=== PATIENT | male | born 1960 | race Caucasian/White ===

== ENCOUNTER 2017-07-01 17:25 | Observation (INO) ==
[2017-07-01] MEDS ORDERED: MORPHINE 2 MG/1 ML SYRINGE IV PRN ×2 (17:35→20:40)
[2017-07-01] MEDS ORDERED: ONDANSETRON 4 MG/2 ML VIAL IV PRN (17:35)
[2017-07-01] MEDS ORDERED: ENOXAPARIN 100 MG/ML SYRINGE SUBCUT STA (17:35)
[2017-07-01] MEDS ORDERED: ASPIRIN 325 MG TABLET PO STA (17:35)
[2017-07-01] MEDS ORDERED: NITROGLYCERIN 2% OINT 1 INCH/GM PACK TOP STA (17:35)
[2017-07-01] MEDS ORDERED: SODIUM CHLORIDE 0.9% 500 ML IV STA (17:39)
[2017-07-01] MEDS ORDERED: NITROGLYCERIN 2% OINT 1 INCH/GM PACK TOP ONE (17:41)
[2017-07-01] MEDS ORDERED: ASPIRIN 325 MG TABLET ONE (17:41)
[2017-07-01] MEDS ORDERED: ENOXAPARIN 80 MG/0.8 ML SYRINGE SUBCUT ONE (17:41)
--- NOTE | 2017-07-01 17:45 | Emergency Department Note ---
Jose Saini Manpreet, am scribing for, and in the presence of, Dajuan Meadows MD 17: 37. Dori Saini James D, MD, personally performed the services described in this documentation, ascribed by Lang Garcia in my presence, and it is both accurate and complete 740 . Arrival - Arrival ED Nursing Triage Note: pt was working and thought he went into svt Mode of Arrival: Ambulatory Limitations: No Limitations Source: Patient - History of Present Illness Onset (ago): hour(s) (at 1430) Consistency: constant Severity: moderate <Dajuan Meadows - Last Filed: 07/01/17 18:30> <Chico Moncada - Last Filed: 07/01/17 18:46> - Arrival Chief Complaint: Arrhythmia/Palpitations Time Seen by Provider: 07/01/17 17:28 - History of Present Illness HPI Narrative: Pt is a 56 y/o male who presents to the ED with CC of CP and heart beating fast earlier today at 1430. Pt describes the CP as non-radiating and as chest "tightness." Pt was cutting grass and this pain began. Pt c/o being SOB, nausea , and turning pale. Pt denies any V/D, fever, or chills. Pt is a current smoker and smokes 2 packs a day. Pt also c/o leg cramping when walking. No other pains/ complaints reported to the ED. (Lang Garcia) Pt is a 56 y/o male who presents to the ED with CC of CP and heart beating fast earlier today at 1430. Pt describes the CP as non-radiating and as chest "tightness." Pt was cutting grass and this pain began. Pt c/o being SOB, nausea , and turning pale. Patient states that this episode lasted about 45 minutes. confirms that he turned pale. She states that she was concerned that the patient was having a hypoglycemic episode therefore she fed him a candy bar and a coke and this did not help. Pt denies any V/D, fever, or chills. Pt is a current smoker and smokes 2 packs a day. Pt also c/o right leg cramping when walking. No other pains/complaints reported to the ED. (Dori,Dajuan D) Allergies/Adverse Reactions: Allergies Allergy/AdvReac Type Severity Reaction Status Date / Time No Known Allergies Allergy Unverified 07/01/17 17:29 Review of System - Review of System 12 point system: reviewed and no additional remarkable complaints except as stated - Review of System Constitutional: Absent: chills, diaphoresis, fever Respiratory: Present: respiratory distress. Absent: cough, wheezing Cardiovascular: Present: chest pain, palpitations Gastrointestinal: Present: nausea. Absent: abdominal pain, vomiting, diarrhea Genitourinary male: Absent: dysuria Musculoskeletal: Absent: arm pain, back pain, leg pain, neck pain Neurological: Absent: headache, weakness, numbness, paresthesias <Dajuan Meadows - Last Filed: 07/01/17 18:30> Medical,Surgical,& Family Hx - Social History Smoking Status: Smoker, status unknown Frequency of Alcohol Use: None Type of Drug Use: None <Dajuan Meadows - Last Filed: 07/01/17 18:30> Exam <Dajuan Meadows - Last Filed: 07/01/17 18:30> <Chico Moncada - Last Filed: 07/01/17 18:46> Vital Signs: Vital Signs Temperature 97.2 F L 07/01/17 17:26 Pulse Rate 111 H 07/01/17 17:26 Respiratory Rate 18 07/01/17 17:33 Blood Pressure 149/109 07/01/17 17:26 O2 Sat by Pulse Oximetry 97 07/01/17 17:26 GENERAL: This is a well-nourished well-developed white male in no apparent distress. VITAL SIGNS: Reviewed HEENT: Head is atraumatic and normocephalic. Pupils are equal round react to light. Extraocular movements are intact. Oropharynx is benign with moist mucous membranes. NECK: Neck is soft and supple without tenderness. There are no masses. There is no lymphadenopathy. LUNGS: Lungs are clear to auscultation. Chest rises symmetrically. There is no chest wall tenderness. CV: Heart is rapid rate regular rhythm without murmurs rubs or gallops. Pulses are not palpable at dorsalis pedis or posterior tibial. Patient does have 2+ bilateral femoral pulses. ABDOMEN: Abdomen is soft, nontender to palpation. There are no abdominal abnormal masses palpated. There is no organomegaly. Bowel sounds are present and active. SKIN: Skin is warm and dry. No rash. EXTREMITIES: Patient has full range of motion without tenderness. There is no pedal edema. NEUROLOGIC: Awake alert and oriented 4. Cranial nerves II through XII are grossly intact. Motor is 5 over 5 in all extremities bilaterally. (Dajuan Meadows) Course - Consultations Time: 18:10 <Dajuan Meadows - Last Filed: 07/01/17 18:30> <Chico Moncada - Last Filed: 07/01/17 18:46> - Consultations Consultation #1: Discussed with Dr. Flores. Patient will be admitted to his service. Initial orders written for him. He will assume patient's care upon arrival to the wright. (Dajuan Meadows) Results - Labs CBC & BMP: 07/01/17 17:36 07/01/17 17:36 Lab Results: I have reviewed the patients labs - EKG EKG results: interpreted by ERMD - Diagnostic Findings Procedure: Chest x-ray: image reviewed by me (No infiltrate, no pleural effusion , no pneumothorax.) <Dajuan Meadows - Last Filed: 07/01/17 18:30> - Labs CBC & BMP: 07/01/17 17:36 07/01/17 17:36 Lab Results: I have reviewed the patients labs <Chico Mnocada - Last Filed: 07/01/17 18:46> - Labs Labs: Laboratory Tests 07/01/17 17:36 INR 1.0 Laboratory Tests 07/01/17 17:36 Troponin I 0.446 H (Dajuan Meadows) - Impressions EKG: Sinus tachycardia with a rate of 102, nonspecific ST-T wave changes, left axis deviation. (Dajuan Meadows) Disposition Case discussed with: patient, patient's family Time of Disposition: 17:42 <Dajuan Meadows - Last Filed: 07/01/17 18:30> <Chico Moncada - Last Filed: 07/01/17 18:46> Clinical Impression: Chest pain, Claudication of right lower extremity, Nicotine addiction, Elevated troponin Disposition: Still a Patient Condition: Guarded
[2017-07-01 17:47] LABS: Basophils # 0.1 10*3/uL (0.0-0.2); Basophils % 0.4 % (0.0-0.8); Eosinophils # 0.1 10*3/uL (0.0-0.87); Eosinophils % 0.7 % (0.00-10.9); Hemoglobin 16.3 GM/DL (14.0-18.0); Immature Granulocytes % 0.4 %; Immature Granulocytes Absolute 0.05 #; Lymphocytes # 3.1 10*3/uL (1.4-4.0); Lymphocytes % 25.9 % (21.2-54.2); Mean Corpuscular HGB Conc 34.7 GM/DL (32-36); Mean Corpuscular Hemoglobin 34 PG (27-34); Mean Corpuscular Volume 98.9 FL (87-102); Mean Platelet Volume 9.8 FL (9.6-12.0); Monocytes # 1.1 10*3/uL (0.11-0.8); Monocytes % 9.5 % (1.7-12.7); Neutrophils # 7.5 10*3/uL (1.4-7.4); Neutrophils % 63.1 % (38.7-73.9); Platelet Count 182 T/CUMM (130-400); Red Blood Count 4.75 MC/CUMM (3.8-5.5); Red Cell Distribution Width 12.2 % (9.3-17.3); White Blood Count 11.8 T/CUMM (4-12)
[2017-07-01 17:53] LABS: Apearance,Urine CLEAR (Clear); Bilirubin,Urine Negative (Negative); Blood, Urine Negative (Negative); Glucose,Urine (UA) Negative (Negative); Ketones,Urine Negative (Negative); Nitrite,Urine Negative (Negative); Protein,Urine Negative; Urine Color Colorless (Yellow); Urine Urobilinogen < 2.0 EU/DL (0.2-1.0)
[2017-07-01 17:57] LABS: PT Patient Result 10.4 SECS; Partial Thromboplastin Time 28.4 SECS (0-40)
[2017-07-01 18:15] LABS: Alanine Aminotransferase 21 U/L (16-61); Albumin 3.8 G/DL (3.4-5.0); Alkaline Phosphatase 102 U/L (45-117); Aspartate Amino Transferase 20 U/L (0-37); Bilirubin,Total < 0.39 MG/DL (0.2-1.0); Blood Urea Nitrogen 7 MG/DL (7-18); Calcium 9.8 MG/DL (8.5-10.1); Glucose 72 MG/DL (74-106); Osmolality,Calculated 271.7 MOS/KG (273-304); Potassium 3.9 MMOL/L (3.5-5.1); Sodium 138 MMOL/L (136-145); Total Protein 7.6 G/DL (6.4-8.3)
--- NOTE | 2017-07-01 18:16 | XRay Report ---
History: Chest pain Date: 07/01/2017 Study: Chest x-ray AP portable Comparison exam: No previous currently available The cardiomediastinal silhouette and pulmonary vasculature are unremarkable. The lungs and pleural spaces are clear. There is mild thoracic spondylosis. Impression: No acute cardiopulmonary process PROCEDURE INTERPRETED AT [facility] DEPARTMENT OF RADIOLOGY Final Report Signed by: Dr. Jena Mcdaniel
[2017-07-01] MEDS ORDERED: MORPHINE 2 MG/1 ML SYRINGE IV STA (19:10)
[2017-07-01] MEDS ORDERED: ONDANSETRON 4 MG/2 ML VIAL IV STA ×2 (19:10)
[2017-07-01] MEDS ORDERED: ONDANSETRON 4 MG/2 ML VIAL ONE (19:12)
[2017-07-01] MEDS ORDERED: MORPHINE 2 MG/1 ML SYRINGE ONE (19:12)
--- NOTE | 2017-07-01 19:23 | EKG Report ---
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
[2017-07-01] MEDS ORDERED: MAGNESIUM SULF RIDER 4 GM in PREMIX 1 EACH IV PRN (20:40)
[2017-07-01] MEDS ORDERED: ZALEPLON 5 MG CAPSULE PO PRN (20:40)
[2017-07-01] MEDS ORDERED: MAGNESIUM SULF RIDER 2 GM in PREMIX 1 EACH IV PRN (20:40)
--- NOTE | 2017-07-01 21:23 | EKG Report ---
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
[2017-07-01] MEDS: SODIUM CHLORIDE 0.9% 1,000 ML IV SCH (21:38)
--- NOTE | 2017-07-01 23:47 | EKG Report ---
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
[2017-07-02 01:20] LABS: Risk Ratio 2.98; VLDL CHOLESTEROL 27.8 MG/DL
[2017-07-02] MEDS: SODIUM CHLORIDE 0.9% 1,000 ML IV SCH ×3 (05:41→21:03)
[2017-07-02] MEDS: ONDANSETRON 4 MG/2 ML VIAL IV PRN ×2 (05:59→10:06)
--- NOTE | 2017-07-02 08:32 | Cardiology History & Physical ---
Assessment and Plan - Time spent with patient Time spent with patient: Greater than 30 minutes (due to assessment, plan, and documentation) Time spent discussing smoking cessation with patient: 3 to 10 minutes (1) Chest pain Status: Acute Assessment and plan: See plan of care listed below. Current Visit: Yes (2) Elevated troponin Status: Acute Assessment and plan: See plan of care listed below. Current Visit: Yes (3) History of mild nonobstructive CAD Status: Chronic Assessment and plan: See plan of care listed below. Current Visit: Yes (4) Claudication of right lower extremity Status: Acute Assessment and plan: See plan of care listed below. Current Visit: Yes (5) Nicotine addiction Status: Chronic Assessment and plan: See plan of care listed below. Current Visit: Yes Qualifiers: Nicotine product type: cigarettes (6) History of PSVT (paroxysmal supraventricular tachycardia) Status: Chronic Assessment and plan: See plan of care listed below. Current Visit: No (7) NSVT (nonsustained ventricular tachycardia) Status: Acute Assessment and plan: See plan of care listed below. 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 Tai Mr. Flynn is a 56 year old male with a prior history of SVT and mild nonobstructive CAD per cath in July 2006. He also has a history of prior ETOH abuse and is currently a 2PPD smoker. He also has a reported history of sepsis and ITP. He denies a history of hypertension, diabetes, dyslipidemia, cancer, stroke, or NE. He has a surgical history significant for a fractured C4- C6 requiring surgical intervention x2. Per records from [place], he had an episode of SVT at [facility] in 2005 which converted with one dose of Adenosine and he was subsequently transferred to [facility] for further evaluation where he underwent LHC with Dr. Collier. He had issues with ETOH withdrawal but he eventually also underwent EGD with Dr. Soares which revealed mild esophagitis in the middle-lower esophagus and moderately severe gastritus on the antrum and greater curvature of the stomach. Mr. Flynn presents to the hospital with complaints of chest tightness and heart racing. He reports he was outside cutting grass and weedeating all day yesterday and yesterday afternoon, his chest became tight and he noticed his heart racing. His reports he appeared pale and diaphoretic and she thought he had become hypoglycemic. She gave him a soda and a candy bar but this didn't help. When his family checked his blood pressure, it was 80s/50s and his heart rate was in the 160s. He subsequently got in the shower and when he got out of the shower, his heart rate had improved to the 100-110 range. His chest tightness was midsternal in location and his symptoms lasted for 30-45 minutes. He reports that he is very active at home and is able to perform activities without having dyspnea on exertion or chest discomfort. He tells me that he has had similar episodes in the past but states it has been a long time since the last episode. He also describes symptoms of claudication in his RLE ongoing for the past year. Upon arrival, Mr. Flynn was noted to have a troponin of 0.446 which stefano to 0.949. His creatinine is 1.0, potassium 3.9. H&H stable at 16.3 and 47.0. Lipid panel revealed triglycerides 139, cholesterol 143, LDL 79, HDL 48. Will further discuss with Dr. Miranda and await additional recommendations. IMPRESSION/PLAN: 1. CHEST PAIN: Likely related to tachyarrhythmia; however, given his troponin leak, disease progression must be considered. 2. ELEVATED TROPONIN: Suspect this is due to demand ischemia from tachyarrhythmia prior to arrival yesterday; however, disease progression cannot be ruled out. I have discussed his case with Dr. Flores and Dr. Miranda. We will keep him NPO in anticipation of probable left heart catheterization this afternoon. 3. HISTORY OF MILD NONOBSTRUCTIVE CAD: With normal LV systolic function per [facility] by Dr. [facility] 2006[facility] 4. CLAUDICATION OF RLE: With diminished pulse to RLE and pain when ambulating. We will plan to check arterial dopplers as an outpatient once we have treated him for his acute issues. 5. TOBACCO ABUSE: Currently smokes 2PPD and is not interested in quitting at this time. Spent greater than 5 minutes discussing the harmful effects of tobacco and benefits of quitting. 6. HISTORY OF SVT: Last documented episode in 2005. Suspect tachyarrhythmia yesterday. 7. NSVT: Patient had a 15 beat run of NSVT yesterday evening. Potassium is 3.9. He is on the replacement protocol for potassium and magnesium. We will review his echocardiogram. Home Medications Medication Instructions Recorded Confirmed Type No Known Home Medications [No 07/01/17 07/01/17 History Known Home Medications] Allergies Allergy/AdvReac Type Severity Reaction Status Date / Time No Known Allergies Allergy Unverified 07/01/17 17:29 Review of systems: - Constitutional: Present: As per HPI. Absent: anorexia, chills, daytime sleepiness, excessive sweating, fever(s), frequent falls, headache(s), increased appetite, lethargy, malaise, night sweats, stops breathing during sleep, weakness, weight gain, weight loss, fatigue. - EENT Eyes: Present: As per HPI. Absent: blurry vision, diplopia, loss of vision Ears: Present: As per HPI. Absent: decreased hearing, ear discharge, ear pain Nose, mouth and throat: Present: As per HPI. Absent: dysphagia, epistaxis, headache(s), hoarseness, lip swelling, nasal congestion, neck mass, neck pain, sinus pressure, sore throat, throat swelling, tongue swelling, vertigo - Cardiovascular: Present: chest pain with activity, diaphoresis, palpitations, claudication, as per HPI. Absent: chest pain at rest, dyspnea, dyspnea on exertion, edema, radiating jaw, neck or arm pain, lightheadedness, orthopnea, PND - Respiratory: Present: as per HPI. Absent: dyspnea, dyspnea on exertion, cough , hemoptysis, wheezing, snoring, pain on inspiration - Gastrointestinal: Present: As per HPI. Absent: abdominal pain, bloating, change in bowel habits, constipation, diarrhea, heartburn, hematemesis, hematochezia, loose stools, melena, nausea, vomiting - Genitourinary: Present: As per HPI. Absent: difficulty urinating, dysuria, flank pain, hematuria, nocturia, urinary frequency, urinary incontinence - Musculoskeletal: Present: As per HPI. Absent: arthralgias, back pain, joint swelling, limited range of motion, muscle cramps, muscle weakness, myalgias - Neurological: Present: As per HPI. Absent: abnormal gait, abnormal speech, behavioral changes, confusion, convulsions, disequilibrium, dizziness, focal weakness, frequent falls, headache(s), memory loss, numbness, paresthesias, radicular pain, syncope, tremor(s) - Psychiatric: Present: As per HPI. Absent: anxiety, confusion, depression, panic attacks - Endocrine: Present: As per HPI. Absent: cold intolerance, fatigue, heat intolerance, polydipsia, polyphagia - Hematologic/Lymphatic: Present: As per HPI. Absent: easy bleeding, easy bruising, lymphadenopathy Medical,Surgical,& Family Hx - Medical History Cardio: History of: CAD (mild nonobstructive per [facility] 2005) Gastrointestinal: History of: GI Problems (history of gastritis) - Surgical History Cardiac Surgeries: Patient Denies: Cardiac Catheterization - Family History Family History: Reports;: Family Diabetes, Family Heart Disease, Family Hypertension, Family Stroke - Social History Smoking Status: Current every day smoker (2PPD smoker) Frequency of Alcohol Use: None (formerly a heavy drinker, quit several years ago ) Type of Drug Use: None Marital Status: Lives With:: Spouse Functional capacity: independent ambulation Cardiology Physical Exam - Constitutional Vitals: Vital Signs Temp Pulse Resp BP Pulse Ox 99.2 F 64 18 103/65 93 L 07/02/17 07:53 07/02/17 07:53 07/02/17 07:53 07/02/17 07:53 07/02/17 07:53 Intake and Output 07/01/17 07/02/17 07/02/17 22:59 06:59 14:59 Intake Total 600 / 600 1000 / 1000 Balance 600 / 600 1000 / 1000 Intake: IV 500 / 500 1000 / 1000 Ns 1,000 ml @ 125 mls/hr 500 / 500 1000 / 1000 IV .Q8H [facility] Rx#: [id number] Oral 100 / 100 Other: Voiding Method Urinal # Voids 1 Weight 167 lb 169 lb 7 oz Exam: General appearance: Appears well. Pleasant and cooperative. Overweight, no acute distress. Head exam: Present: normal inspection, normocephalic, atraumatic. Absent: hematoma, laceration Eye exam: Present: EOMI. Absent: conjunctival injection, nystagmus, periorbital swelling, scleral icterus, laceration to eyelids, jaundice Pupils: Present: PERRL. Absent: constricted, dilated, fixed, irregular, unequal ENT exam: Present: normal exam, normal external ear exam, mucous membranes moist. Neck exam: Present: normal inspection, midline trachea. Absent: masses, lymphadenopathy, tenderness, thyromegaly, carotid bruit Respiratory exam: Present: coarse to auscultation bilaterally. Absent: accessory muscle use, chest wall tenderness, rales, rhonchi. Cardiovascular exam: Present: regular rate and rhythm. Absent: gallop, JVD, rubs, murmur GI/Abdominal exam: Present: normal bowel sounds, soft. Absent: distended, firm , hernia, mass, tenderness. Extremities exam: Present: Normal Gait, No Clubbing, No Cyanosis, Upper Extr. Pulses 2+, RLE pulse diminished, LLE pulse present and palpable, No edema. Capillary refill less than 3 seconds. Musculoskeletal: Present: No Fluid Collection, No Pain, Normal Range of Motion Back exam: Present: normal inspection. Absent: muscle spasm, vertebral tenderness Neurological exam: Present: awake, alert, oriented X3, Moves all extremities well without hemiparesis or paralysis. Grossly intact without resting or essential tremor Psychiatric exam: Present: normal affect, normal mood Skin exam: Present: normal color, warm, dry, intact. Absent: cyanosis, diaphoretic, rash, urticaria Result/EKG - Labs CBC & BMP: 07/01/17 17:36 07/01/17 17:36 Lab Results: I have reviewed the past 24 hour labs Labs: Laboratory Results - last 24 hr 07/01/17 07/01/17 07/01/17 17:36 17:36 17:36 WBC RBC Hgb Hct MCV MCH MCHC RDW Plt Count MPV Neut % (Auto) Lymph % (Auto) Hill % (Auto) Eos % (Auto) Baso % (Auto) Neut # (Auto) Lymph # (Auto) Hill # (Auto) Eos # (Auto) Baso # (Auto) Immature Gran % Nucleated RBC % Immature Gran # Nucleated RBCs # Immature Plt Fraction INR 1.0 PT Patient/Control Mix 10.4 Circ Anticoag PTT 28.4 Sodium Potassium Chloride Carbon Dioxide Anion Gap BUN Creatinine GFR Calculation BUN/Creatinine Ratio Glucose Calculated Osmolality Calcium Total Bilirubin AST ALT Alkaline Phosphatase Troponin I 0.446 H Total Protein Albumin Globulin Albumin/Globulin Ratio Triglycerides Cholesterol LDL Cholesterol VLDL Cholesterol HDL Cholesterol Heart Disease Risk Ratio Urine Color Colorless Urine Appearance Clear Urine pH 7.0 Ur Specific [place]eland 1.000 L Urine Protein Negative Urine Glucose (UA) Negative Urine Ketones Negative Urine Blood Negative Urine Nitrate Negative Urine Bilirubin Negative Urine Urobilinogen < 2.0 H Urine Leukocytes Negative Ur Culture Indicated? Not indicated 07/01/17 07/01/17 07/01/17 17:36 17:36 21:55 WBC 11.8 RBC 4.75 Hgb 16.3 Hct 47.0 MCV 98.9 MCH 34 MCHC 34.7 RDW 12.2 Plt Count 182 MPV 9.8 Neut % (Auto) 63.1 Lymph % (Auto) 25.9 Hill % (Auto) 9.5 Eos % (Auto) 0.7 Baso % (Auto) 0.4 Neut # (Auto) 7.5 H Lymph # (Auto) 3.1 Hill # (Auto) 1.1 H Eos # (Auto) 0.1 Baso # (Auto) 0.1 Immature Gran % 0.4 Nucleated RBC % 0.0 Immature Gran # 0.05 Nucleated RBCs # 0.00 Immature Plt Fraction 0.0 INR PT Patient/Control Mix Circ Anticoag PTT Sodium 138 Potassium 3.9 Chloride 104 Carbon Dioxide 29 Anion Gap 8.9 BUN 7 Creatinine 1.00 GFR Calculation 93 BUN/Creatinine Ratio 7.00 Glucose 72 L Calculated Osmolality 271.7 L Calcium 9.8 Total Bilirubin < 0.39 AST 20 ALT 21 Alkaline Phosphatase 102 Troponin I 0.949 H D Total Protein 7.6 Albumin 3.8 Globulin 3.8 H Albumin/Globulin Ratio 1.0 L Triglycerides Cholesterol LDL Cholesterol VLDL Cholesterol HDL Cholesterol Heart Disease Risk Ratio Urine Color Urine Appearance Urine pH Ur Specific Leland Urine Protein Urine Glucose (UA) Urine Ketones Urine Blood Urine Nitrate Urine Bilirubin Urine Urobilinogen Urine Leukocytes Ur Culture Indicated? 07/02/17 07/02/17 00:06 00:06 WBC RBC Hgb Hct MCV MCH MCHC RDW Plt Count MPV Neut % (Auto) Lymph % (Auto) Hill % (Auto) Eos % (Auto) Baso % (Auto) Neut # (Auto) Lymph # (Auto) Hill # (Auto) Eos # (Auto) Baso # (Auto) Immature Gran % Nucleated RBC % Immature Gran # Nucleated RBCs # Immature Plt Fraction INR PT Patient/Control Mix Circ Anticoag PTT Sodium Potassium Chloride Carbon Dioxide Anion Gap BUN Creatinine GFR Calculation BUN/Creatinine Ratio Glucose Calculated Osmolality Calcium Total Bilirubin AST ALT Alkaline Phosphatase Troponin I 0.925 H Total Protein Albumin Globulin Albumin/Globulin Ratio Triglycerides 139 Cholesterol 143 LDL Cholesterol 79.0 VLDL Cholesterol 27.8 HDL Cholesterol 48 Heart Disease Risk Ratio 2.98 Urine Color Urine Appearance Urine pH Ur Specific [place] Urine Protein Urine Glucose (UA) Urine Ketones Urine Blood Urine Nitrate Urine Bilirubin Urine Urobilinogen Urine Leukocytes Ur Culture Indicated? - EKG EKG results: interpreted by me, sinus rhythm
[2017-07-02] MEDS: PANTOPRAZOLE 40 MG TABLET PO SCH (10:06)
[2017-07-02] MEDS ORDERED: MAGNESIUM HYDROXIDE SUSP 30 ML UDCUP PO PRN (11:53)
[2017-07-02] MEDS ORDERED: ALUM/MAG/SIMETH/LIDO VISC 1:1 30 ML BOTTLE PO PRN (11:53)
[2017-07-02] MEDS ORDERED: ACETAMINOPHEN 325 MG TABLET PO PRN (11:53)
[2017-07-02] MEDS ORDERED: POTASSIUM CHLORIDE 20 MEQ TABLET PO PRN ×2 (11:53)
[2017-07-02] MEDS ORDERED: CARVEDILOL 3.125 MG TABLET PO SCH (12:00)
[2017-07-02] MEDS ORDERED: diphenhydrAMINE CAP 50 MG CAPSULE PO ONE (12:22)
[2017-07-02] MEDS ORDERED: LIDOCAINE 1% 20 ML VIAL ONE (12:33)
[2017-07-02] MEDS ORDERED: HEPARIN/NACL 0.9% 2 UNITS/ML 1,000 ML IV ONE (12:33)
[2017-07-02] MEDS ORDERED: VERAPAMIL 5 MG/2 ML VIAL ONE (12:34)
[2017-07-02] MEDS ORDERED: NITROGLYCERIN DRIP 0 MG/0 ML BOTTLE IV ONE (12:34)
[2017-07-02] MEDS ORDERED: DIAZEPAM 5 MG TABLET PO ONE (12:34)
[2017-07-02] MEDS ORDERED: DIAZEPAM 5 MG TABLET ONE (12:36)
[2017-07-02] MEDS: SODIUM CHLORIDE 0.45% 1,000 ML IV SCH ×2 (12:39→21:03)
[2017-07-02] MEDS: ASPIRIN EC 81 MG TABLET PO SCH (12:39)
[2017-07-02] MEDS ORDERED: LIDOCAINE 1%/EPI INJ 20 ML VIAL ONE (12:52)
[2017-07-02] MEDS ORDERED: fentaNYL 100 MCG/2 ML VIAL ONE (13:08)
[2017-07-02] MEDS ORDERED: MIDAZOLAM 2 MG/2 ML VIAL ONE (13:08)
--- NOTE | 2017-07-02 13:12 | History and Physical Update ---
Sedation H&P Update - History and Physical H&P was reviewed, the patient examined and there: are no changes in the patients condition since last H&P was completed. - Sedation Plan for Sedation: moderate Patient Consent: Procedure disscussed with patient and patinet has consented., Risks and benefits were discussed with patient,including infection,, bleeding, injury to surrounding structures, seizure, temporary nerve, Patient understands and accepts potential risks/benefits and agrees to, proceed. ASA Class: III Airway Assessment: Class III: Soft palate, base of uvula visible
[2017-07-02] MEDS ORDERED: ENOXAPARIN 60 MG/0.6 ML SYRINGE ONE (13:34)
[2017-07-02] MEDS ORDERED: TIROFIBAN 5,000 MCG/100 ML PREMIX IV ONE (13:36)
[2017-07-02] MEDS ORDERED: TICAGRELOR 90 MG TABLET ONE (14:01)
--- NOTE | 2017-07-02 14:18 | Cardiac Catheterization ---
Date of Procedure:: 07/02/17 Pre-op Diagnosis: Ventricular arrhythmias elevated troponin chest discomfort for evaluation Post-op diagnosis: same Procedure: Procedures performed: #1 left heart catheterization #2 coronary angiography #3 percutaneous intervention to the mid right coronary artery with a 3.0 x 16 mm synergy drug-eluting stent with a good angiographic result #4 left ventriculography #5 right femoral sheath angiography #6 Angio-Seal closure right femoral arteriotomy site After obtaining informed consent the patient brought to the [facility] where the right groin was prepped and draped in the usual sterile manner. After local anesthesia and intravenous sedation a needle stick was made to the right femoral artery and a 6 English sheath was positioned without difficulty. A Shahriar left catheter was advanced over a guidewire under fluoroscopic control to the ascending aorta where angiography of left coronary artery was undertaken in multiple views. After adequate angiograms of the left coronary were obtained this catheter was withdrawn and an AMRM right coronary catheter was advanced over a guidewire under fluoroscopic control to the ascending aorta where angiography of the right coronary artery was undertaken in multiple views. After adequate angiograms of the right coronary were obtained this catheter was withdrawn and a pigtail ventriculographic catheter was advanced over a guidewire under fluoroscopic control to the ascending aorta where it was passed across the aortic valve and intraventricular hemodynamics were measured. Patient underwent left ventriculography injecting 35 mL of contrast at 12 mL/ s. This was performed from the right anterior oblique projection. After ventriculography this catheter was pulled back from the ventricle to the aorta under hemodynamic monitoring and removed. We elected to proceed with percutaneous intervention of the right coronary artery. A AL-1 guide was advanced over a guidewire under fluoroscopic control to the ascending aorta where the right coronary artery was engaged. We had previously attempted with a JR guide as well as a guide liner without success. An 014 BMW wire was advanced to the distal right coronary artery and a 2.0 x 12 mm mini trek balloon was advanced to the area stenosis and inflated to maximum 12 araceli. The balloon was then deflated and removed. A [employer] 3.0 x 16 mm Synergy drug-eluting stent was advanced to the area stenosis deployed to maximum 14 araceli for 24 seconds. At this point there was good resolution of the stenosis with JOSE grade III flow down the vessel. This was viewed in multiple angulations and after ascertaining a good result without evidence of dissection or compromise flow the delivery balloon and guidewire were pulled back into the guide. Repeat angiography confirmed a good result. At this point the guidewire and delivery balloon were removed from the guide. The guide was then removed from the sheath. The patient underwent right femoral sheath angiography which demonstrated anatomy appropriate for minx closure. This was performed without difficulty and good hemostasis was obtained. Hemodynamics: Please see the accompanying data sheet Coronary angiography: Left coronary artery: The left main coronary artery is well-developed and free of significant obstructing lesions. The circumflex coronary artery is a moderate-sized nondominant vessel that possesses no significant lesions through its course. The branches of the circumflex likewise are free of significant obstructing lesions. The left anterior descending coronary artery is a large vessel that extends to the apex of the ventricle. The LAD and its branches are free of significant obstructing lesions. There is noted to be calcification of the LAD but no significant flow-limiting stenosis can be identified. Right coronary artery: Right coronary artery is densely calcified in its proximal one third. There is an angulated 99% stenosis of the proximal right coronary artery noted. Remainder the right coronary is free of significant obstructing lesions. The proximal vessel is angulated and calcified. Left ventriculography: After injection of contrast in the left ventricle is noted be of normal size with normal contractility. Ejection fraction is estimated to be in the 60 % range. Mitral and aortic structures appear normal by ventriculography. Percutaneous intervention: The above described procedure the lesion went from 99% stenotic to less than 0% stenotic post stent deployment. No evidence of dissection or compromise flow can be identified. There was JOSE grade 3 flow down the vessel. The proximal vessel was ossified and angulated but no significant abnormality of the proximal vessel could be noted. Right femoral sheath angiography: After injection of contrast in the right femoral arterial sheath it appears to enter the common femoral above the bifurcation. There is severe calcification of the common femoral. Conclusions: 1: Successful percutaneous intervention of the mid right coronary artery with a good angiographic result after a 3.0 x 16 mm synergy drug-eluting stent placed to the mid right coronary artery. 2: Angiographically no evidence of significant fixed coronary obstruction of the left coronary system by this study. 3: Normal left ventricular size and function 4: Minx closure right femoral arteriotomy site Discussion and recommendations: The patient presents with chest discomfort dyspnea and tachycardia. He is found to have a single-vessel stenosis now treated successfully with percutaneous coronary intervention. He does have a history of SVT and had a run of ventricular tachycardia last night. He will be treated aggressively with risk factor modification and continue medical therapy for his nonocclusive coronary disease with calcified vessels. Our findings will be reviewed with the patient and with his family. Surgeon / Physician: Calixto Miranda Estimated blood loss: minimal Specimens: none sent Condition: stable - Medications / Follow-up
[2017-07-02] MEDS ORDERED: TIROFIBAN 5,000 MCG/100 ML PREMIX IV SCH (14:30)
--- NOTE | 2017-07-02 14:39 | EKG Report ---
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
--- NOTE | 2017-07-02 16:59 | ECHO Report ---
Michael Flynn 07/02/2017 Exam Date: 08:26 Referring Physician: Shirin Leong Technologist: BRYANNA Age: 56 Ht (in): 69 Wt (lb): 169 MExam [facility] Gender: Echo [id number]: Chest pain, unspecified, PalpitationIndications:, Shortness of breath, Nausea BP: 106 / 65 HR: 69 SinusRhythm: GoodTechnical Quality: IMPRESSIONS Normal left ventricular cavity size. Mild left ventricular hypertrophy. Left ventricular ejection fraction is estimated at 55 %. The right ventricle is normal in size and function. The right atrium is normal in size. The left atrium is normal in size. Morphologically normal mitral valve. Moderate aortic valve calcification. Mean gradient 15 mmHg, TARSHA 1.9 cm. No aortic valve regurgitation. Morphologically normal tricuspid valve. Trace to mild tricuspid valve regurgitation. Tricuspid regurgitation velocities suggest a PAP of 35 mmHg. Morphologically normal pulmonic valve without significant stenosis. There is no pulmonic regurgitation. Normal pericardium without effusion. Normal ascending aorta dimension. MEASUREMENTS (Male / Female) Normal Values 2D ECHO LV Diastolic Diameter PLAX 4.8 cm 4.2 - 5.9 / 3.9 - 5.3 cm LV Systolic Diameter PLAX 3.3 cm LV Fractional Shortening PLAX 31.2 % IVS Diastolic Thickness 1.1 cm 0.6 - 1.0 / 0.6 - 0.9 cm LVPW Diastolic Thickness 1.2 cm 0.6 - 1.0 / 0.6 - 0.9 cm RV Internal Dim ED PLAX 3.8 cm Aortic Root Diameter 4.4 cm LA Systolic Diameter LX 3.3 cm 3.0 - 4.0 / 2.7 - 3.8 cm DOPPLER TR Peak Velocity 251.0 cm/s TR Peak Gradient 25.2 mmHg FINDINGS Left Ventricle Normal left ventricular cavity size. Mild left ventricular hypertrophy. Left ventricular ejection fraction is estimated at 55 %. Right Ventricle The right ventricle is normal in size and function. Right Atrium The right atrium is normal in size. Left Atrium The left atrium is normal in size. Mitral Valve Morphologically normal mitral valve. Aortic Valve Moderate aortic valve calcification. Mean gradient 15 mmHg, TARSHA 1.9 cm. No aortic valve regurgitation. Tricuspid Valve Morphologically normal tricuspid valve. Trace to mild tricuspid valve regurgitation. Tricuspid regurgitation velocities suggest a PAP of 35 mmHg. Pulmonic Valve Morphologically normal pulmonic valve without significant stenosis. There is no pulmonic regurgitation. Pericardium Normal pericardium without effusion. Aorta Normal ascending aorta dimension. Calixto Miranda MD (Electronically Signed) 02 July 2017 Final Date: 16:58
[2017-07-02] MEDS ORDERED: ROSUVASTATIN 20 MG TABLET PO SCH (21:00)
[2017-07-02] MEDS ORDERED: ATORVASTATIN 10 MG TABLET PO SCH (21:00)
[2017-07-02] MEDS: METOPROLOL TARTRATE 50 MG TABLET PO SCH (21:03)
[2017-07-03 04:00] LABS: Basophils % 0.4 % (0.0-0.8); Eosinophils # 0.1 10*3/uL (0.0-0.87); Eosinophils % 1.7 % (0.00-10.9); Hematocrit 37.8 VOL% (42.0-52.0); Hemoglobin 12.7 GM/DL (14.0-18.0); Immature Granulocytes % 0.4 %; Immature Granulocytes Absolute 0.03 #; Lymphocytes % 28.8 % (21.2-54.2); Mean Corpuscular HGB Conc 33.6 GM/DL (32-36); Mean Corpuscular Hemoglobin 34 PG (27-34); Mean Corpuscular Volume 102.4 FL (87-102); Mean Platelet Volume 10.6 FL (9.6-12.0); Monocytes # 0.6 10*3/uL (0.11-0.8); Monocytes % 8.2 % (1.7-12.7); Neutrophils # 4.2 10*3/uL (1.4-7.4); Neutrophils % 60.5 % (38.7-73.9); Platelet Count 135 T/CUMM (130-400); Red Blood Count 3.69 MC/CUMM (3.8-5.5); Red Cell Distribution Width 12.6 % (9.3-17.3)
[2017-07-03 04:39] LABS: Calcium 7.9 MG/DL (8.5-10.1); Magnesium 1.9 MG/DL (1.8-2.4); Potassium 3.9 MMOL/L (3.5-5.1)
[2017-07-03 05:17] LABS: Risk Ratio 3.29; VLDL CHOLESTEROL 28.4 MG/DL
[2017-07-03] MEDS: SODIUM CHLORIDE 0.9% 1,000 ML IV SCH ×2 (05:44→13:30)
[2017-07-03] MEDS: SODIUM CHLORIDE 0.45% 1,000 ML IV SCH (05:45)
[2017-07-03] MEDS: METOPROLOL TARTRATE 50 MG TABLET PO SCH (08:24)
[2017-07-03] MEDS: PANTOPRAZOLE 40 MG TABLET PO SCH (08:24)
[2017-07-03] MEDS: ASPIRIN EC 81 MG TABLET PO SCH (08:24)
--- NOTE | 2017-07-03 08:27 | EKG Report ---
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
[2017-07-03] MEDS ORDERED: TICAGRELOR 90 MG TABLET PO SCH (09:00)
--- NOTE | 2017-07-03 12:06 | Discharge Summary ---
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 Tai SUMMARY: Mr. Flynn is a 56 year old male who presented to the hospital with complaints of chest tightness and heart racing. He has a history of SVT and mild nonobstructive CAD per cath in July 2006. He continues to smoke 2PPD. He had a short run of VT the night of admission and had a mild troponin leak with peak of 0.949. He underwent left heart catheterization to rule out disease progression and was found to have a 99% stenosis in the right coronary artery. He subsequently received a 3.0 X 16 mm Synergy CHRISTOPHE to the mid RCA with good result. He has had no further dysrhythmias. H&H is stable, troponin is trending down. Potassium is 3.9, magnesium 1.9. Creatinine is 0.9. Lipid panel revealed triglycerides 142, cholesterol 135, LDL 78, HDL 41. She was started on statin therapy to slow disease progression. He will also continue dual antiplatelet therapy with aspirin and Brilinta. He was also placed on metoprolol 25 mg p.o. twice daily. Ejection fraction was 60%. We will send in 1 month Brilinta prescription for him to receive his first month of medication free. She will then be given a handwritten prescription for a one -year supply of Brilinta. His , Chiara Flynn, was present for the discussion and verbalizes understanding the importance of not missing any doses of his medication. Groin precautions were discussed. His right groin dressing was removed and there is no bleeding, hematoma, or bruit at site. Femoral pulse is 3+. Distal pulses are present and palpable bilaterally. He will follow-up with Dr. Miranda in 2-3 weeks for groin check. He will also be scheduled for lower extremity arterial Dopplers due to claudication. - Time spent with patient Time with patient DS: Less than 30 minutes Diagnosis - Discharge Diagnosis (1) Chest pain Status: Resolved (2) Elevated troponin Status: Resolved (3) History of mild nonobstructive CAD Status: Chronic (4) Claudication of right lower extremity Status: Acute (5) Nicotine addiction Status: Chronic (6) History of PSVT (paroxysmal supraventricular tachycardia) Status: Chronic (7) NSVT (nonsustained ventricular tachycardia) Status: Resolved Specialty Discharge - Follow Up or Referrals Follow up with: Calixto Miranda MD [Physician] - 2 Weeks (Follow-up with Dr. Miranda in 2-3 weeks with CBC, BMP with Mg. Bring blood pressure log to follow-up visit. Please schedule for BLE arterial dopplers prior to follow up appointment. ) Discharge Plan - Discharge Data Disposition: Disch To Home/Self Care Condition at Discharge: Stable Discharge Diet: heart healthy Activity: no lifting (No lifting over 5 pounds 1 week.) Hygiene: may shower (Do not submerge cath site beneath water for 1 week.) Weight Bearing at Discharge: full weight bearing Driving: not for (No driving for 2 days.) Contact your physician if you experience:: fever over 101, Difficulty voiding, Redness or swelling, Nausea/Vomiting, Shortness of breath, Bleeding, pain uncontrolled by pain medications - Discharge Medications New Aspirin EC Tab 81 mg PO DAILY #30 tablet Metoprolol Tartrate Tab [Lopressor Tab] 25 mg PO BID #60 tablet Rosuvastatin [Crestor] 40 mg PO BEDTIME #30 tablet Ticagrelor [Brilinta] 90 mg PO BID #60 tablet - Follow Up or Referral - Forms/Instructions Instructions: Left Heart Catheterization (DC), How to Stop Smoking (GEN), Heart Healthy Diet (GEN), Coronary Intravascular Stent Placement (DC), Cigarette Smoking and Your Health, Legal Billing Clerk (GEN) Exam - Constitutional Vitals: Period Temp Pulse Resp BP Sys/Day Pulse Ox Last 24 Hr 96.9 F-98.3 F 50-69 16-20 104-152/61-93 90-95 Exam: General appearance: Appears well. Pleasant and cooperative. Overweight, no acute distress. Head exam: Present: normal inspection, normocephalic, atraumatic. Absent: hematoma, laceration Eye exam: Present: EOMI. Absent: conjunctival injection, nystagmus, periorbital swelling, scleral icterus, laceration to eyelids, jaundice Pupils: Present: PERRL. Absent: constricted, dilated, fixed, irregular, unequal ENT exam: Present: normal exam, normal external ear exam, mucous membranes moist. Neck exam: Present: normal inspection, midline trachea. Absent: masses, lymphadenopathy, tenderness, thyromegaly, carotid bruit Respiratory exam: Present: coarse to auscultation bilaterally. Absent: accessory muscle use, chest wall tenderness, rales, rhonchi. Cardiovascular exam: Present: regular rate and rhythm. Absent: gallop, JVD, rubs, murmur GI/Abdominal exam: Present: normal bowel sounds, soft. Absent: distended, firm , hernia, mass, tenderness. Extremities exam: Present: Normal Gait, No Clubbing, No Cyanosis, Upper Extr. Pulses 2+, RLE pulse diminished, LLE pulse present and palpable, No edema. Capillary refill less than 3 seconds. Musculoskeletal: Present: No Fluid Collection, No Pain, Normal Range of Motion Back exam: Present: normal inspection. Absent: muscle spasm, vertebral tenderness Neurological exam: Present: awake, alert, oriented X3, Moves all extremities well without hemiparesis or paralysis. Grossly intact without resting or essential tremor Psychiatric exam: Present: normal affect, normal mood Skin exam: Present: normal color, warm, dry, intact. Absent: cyanosis, diaphoretic, rash, urticaria Right groin: Dressing removed. Site open to air. No bleeding, hematoma, or bruit at site. Femoral pulses 3+. Distal pulses present and palpable. Mild ecchymosis noted. Discharge Results Procedures and tests throughout hospitalization: Pending Orders 07/04/17 04:00 Basic Metabolic Panel w/Mg IN AM Comp Blood Count Auto Diff IN AM 07/05/17 04:00 Basic Metabolic Panel w/Mg IN AM Comp Blood Count Auto Diff IN AM Left heart catheterization 07/02/2017: Coronary angiography: Left coronary artery: The left main coronary artery is well-developed and free of significant obstructing lesions. The circumflex coronary artery is a moderate-sized nondominant vessel that possesses no significant lesions through its course. The branches of the circumflex likewise are free of significant obstructing lesions. The left anterior descending coronary artery is a large vessel that extends to the apex of the ventricle. The LAD and its branches are free of significant obstructing lesions. There is noted to be calcification of the LAD but no significant flow-limiting stenosis can be identified. Right coronary artery: Right coronary artery is densely calcified in its proximal one third. There is an angulated 99% stenosis of the proximal right coronary artery noted. Remainder the right coronary is free of significant obstructing lesions. The proximal vessel is angulated and calcified. Left ventriculography: After injection of contrast in the left ventricle is noted be of normal size with normal contractility. Ejection fraction is estimated to be in the 60 % range. Mitral and aortic structures appear normal by ventriculography. Percutaneous intervention: The above described procedure the lesion went from 99% stenotic to less than 0% stenotic post stent deployment. No evidence of dissection or compromise flow can be identified. There was JOSE grade 3 flow down the vessel. The proximal vessel was ossified and angulated but no significant abnormality of the proximal vessel could be noted. Right femoral sheath angiography: After injection of contrast in the right femoral arterial sheath it appears to enter the common femoral above the bifurcation. There is severe calcification of the common femoral. Conclusions: 1: Successful percutaneous intervention of the mid right coronary artery with a good angiographic result after a 3.0 x 16 mm synergy drug-eluting stent placed to the mid right coronary artery. 2: Angiographically no evidence of significant fixed coronary obstruction of the left coronary system by this study. 3: Normal left ventricular size and function 4: Minx closure right femoral arteriotomy site Discussion and recommendations: The patient presents with chest discomfort dyspnea and tachycardia. He is found to have a single-vessel stenosis now treated successfully with percutaneous coronary intervention. He does have a history of SVT and had a run of ventricular tachycardia last night. He will be treated aggressively with risk factor modification and continue medical therapy for his nonocclusive coronary disease with calcified vessels. Our findings will be reviewed with the patient and with his family. Labs on day of discharge: Labs from last 24 hours 07/03/17 07/03/17 07/03/17 06:59 02:41 02:41 WBC RBC Hgb Hct MCV MCH MCHC RDW Plt Count MPV Neut % (Auto) Lymph % (Auto) [place] % (Auto) Eos % (Auto) Baso % (Auto) Neut # (Auto) Lymph # (Auto) [place] # (Auto) Eos # (Auto) Baso # (Auto) Immature Gran % Nucleated RBC % Immature Gran # Nucleated RBCs # Immature Plt Fraction Sodium 143 Potassium 3.9 Chloride 111 H Carbon Dioxide 25 Anion Gap 10.9 BUN 6 L Creatinine 0.90 GFR Calculation 104 BUN/Creatinine Ratio 6.00 Glucose 132 H Calculated Osmolality 284.0 Calcium 7.9 L Magnesium 1.9 Troponin I 0.325 H D Triglycerides 142 Cholesterol 135 LDL Cholesterol 78.0 VLDL Cholesterol 28.4 HDL Cholesterol 41 Heart Disease Risk Ratio 3.29 07/03/17 07/02/17 07/02/17 02:41 22:31 14:39 WBC 7.0 D RBC 3.69 L D Hgb 12.7 L D Hct 37.8 L MCV 102.4 H MCH 34 MCHC 33.6 RDW 12.6 Plt Count 135 D MPV 10.6 Neut % (Auto) 60.5 Lymph % (Auto) 28.8 [place] % (Auto) 8.2 Eos % (Auto) 1.7 Baso % (Auto) 0.4 Neut # (Auto) 4.2 Lymph # (Auto) 2.0 [place] # (Auto) 0.6 Eos # (Auto) 0.1 Baso # (Auto) 0.0 Immature Gran % 0.4 Nucleated RBC % 0.0 Immature Gran # 0.03 Nucleated RBCs # 0.00 Immature Plt Fraction 0.0 Sodium Potassium Chloride Carbon Dioxide Anion Gap BUN Creatinine GFR Calculation BUN/Creatinine Ratio Glucose Calculated Osmolality Calcium Magnesium Troponin I 0.510 H D 0.357 H D Triglycerides Cholesterol LDL Cholesterol VLDL Cholesterol HDL Cholesterol Heart Disease Risk Ratio 07/02/17 14:39 WBC RBC Hgb Hct MCV MCH MCHC RDW Plt Count MPV Neut % (Auto) Lymph % (Auto) [place] % (Auto) Eos % (Auto) Baso % (Auto) Neut # (Auto) Lymph # (Auto) [place] # (Auto) Eos # (Auto) Baso # (Auto) Immature Gran % Nucleated RBC % Immature Gran # Nucleated RBCs # Immature Plt Fraction Sodium Potassium Chloride Carbon Dioxide Anion Gap BUN Creatinine GFR Calculation BUN/Creatinine Ratio Glucose Calculated Osmolality Calcium Magnesium 1.9 Troponin I Triglycerides Cholesterol LDL Cholesterol VLDL Cholesterol HDL Cholesterol Heart Disease Risk Ratio DS: Provider Date of admission: 07/01/17 18:10 Primary care physician: Oliverio Tai MD Attending physician on admission: Jeronimo Flores MD Consults: 07/02/17 11:57 Consult to Cardiac Rehabilitation [CONS] Routine Reason for Cardiac Rehabilitation: Risk Factor Modification 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
[2017-07-03 12:24] VITALS: BP 142/73
== END 2017-07-03 14:10 | disposition home or self-care (01) ==
LOC: N.ED 17:25 → N.EDINP 17:25 → N.TELES 20:17
PROVIDERS: ADMIT Internal Medicine Clinical Cardiac Electrophysiology; ATTEND Internal Medicine Clinical Cardiac Electrophysiology
PROC: CLCCHCL (ICD-10-PCS; 2017-07-02 14:15)

== ENCOUNTER 2018-05-26 09:53 | Inpatient (IN) ==
[2018-05-26] MEDS ORDERED: ADENOSINE 6 MG/2 ML VIAL ONE (09:56)
[2018-05-26] MEDS ORDERED: ONDANSETRON 4 MG/2 ML VIAL ONE (10:03)
[2018-05-26] MEDS ORDERED: METOPROLOL TARTRATE 5 MG/5 ML VIAL IV ONE (10:06)
[2018-05-26] MEDS ORDERED: ADENOSINE 6 MG/2 ML VIAL IV STA ×2 (10:14→10:15)
[2018-05-26] MEDS ORDERED: SODIUM CHLORIDE 0.9% 1,000 ML IV STA ×2 (10:14→10:56)
[2018-05-26] MEDS ORDERED: ONDANSETRON 4 MG/2 ML VIAL IV STA (10:14)
[2018-05-26] MEDS ORDERED: METOPROLOL TARTRATE 5 MG/5 ML VIAL IV STA (10:14)
[2018-05-26] MEDS ORDERED: LORazepam 2 MG/1 ML VIAL IV STA (10:15)
[2018-05-26] MEDS ORDERED: ASPIRIN 325 MG TABLET PO STA (10:19)
[2018-05-26 10:26] LABS: Basophils # 0.1 10*3/uL (0.0-0.2); Basophils % 0.5 % (0.0-0.8); Eosinophils # 0.1 10*3/uL (0.0-0.87); Eosinophils % 0.7 % (0.00-10.9); Hematocrit 56.2 VOL% (42.0-52.0); Hemoglobin 19.5 GM/DL (14.0-18.0); Immature Granulocytes % 0.6 %; Immature Granulocytes Absolute 0.06 #; Lymphocytes # 3.4 10*3/uL (1.4-4.0); Lymphocytes % 31.3 % (21.2-54.2); Mean Corpuscular HGB Conc 34.7 GM/DL (32-36); Mean Corpuscular Hemoglobin 37 PG (27-34); Mean Corpuscular Volume 107.5 FL (87-102); Mean Platelet Volume 9.9 FL (9.6-12.0); Monocytes # 0.8 10*3/uL (0.11-0.8); Monocytes % 7.8 % (1.7-12.7); Neutrophils # 6.4 10*3/uL (1.4-7.4); Neutrophils % 59.1 % (38.7-73.9); Platelet Count 177 T/CUMM (130-400); Red Blood Count 5.23 MC/CUMM (3.8-5.5); Red Cell Distribution Width 12.3 % (9.3-17.3); White Blood Count 10.8 T/CUMM (4-12)
[2018-05-26 10:30] LABS: PT Patient Result 10.8 SECS
[2018-05-26] MEDS ORDERED: AMIODARONE INJ 150 MG in DEXTROSE 5% 100 ML IV ONE (10:32)
[2018-05-26] MEDS ORDERED: AMIODARONE INJ 450 MG in DEXTROSE 5% 241 ML IV SCH (11:00)
[2018-05-26 11:01] LABS: Alanine Aminotransferase 25 U/L (16-61); Albumin 3.6 G/DL (3.4-5.0); Alkaline Phosphatase 83 U/L (45-117); Aspartate Amino Transferase 34 U/L (0-37); Blood Urea Nitrogen 4 MG/DL (7-18); Calcium 9.1 MG/DL (8.5-10.1); Glucose 117 MG/DL (74-106); Osmolality,Calculated 272.7 MOS/KG (273-304); Potassium 4.6 MMOL/L (3.5-5.1); Sodium 138 MMOL/L (136-145); Thyroid Stimulating Hormone 0.997 uIU/ml (0.358-3.74); Total Protein 8.2 G/DL (6.4-8.3)
[2018-05-26] MEDS ORDERED: POTASSIUM CHLORIDE 20 MEQ TABLET PO PRN (11:03)
[2018-05-26] MEDS ORDERED: diphenhydrAMINE CAP 25 MG CAPSULE PO PRN (11:03)
[2018-05-26] MEDS ORDERED: BISACODYL 5 MG TABLET PO PRN (11:03)
[2018-05-26] MEDS ORDERED: NICOTINE 21 MG/24 HR PATCH TRANSDERM PRN (11:03)
[2018-05-26] MEDS ORDERED: MAGNESIUM SULF RIDER 2 GM in PREMIX 1 EACH IV PRN (11:03)
[2018-05-26] MEDS ORDERED: ZALEPLON 5 MG CAPSULE PO PRN (11:03)
[2018-05-26] MEDS ORDERED: ACETAMINOPHEN 325 MG TABLET PO PRN (11:03)
[2018-05-26] MEDS ORDERED: guaiFENesin/DM ER 600-30 MG TABLET PO PRN (11:03)
[2018-05-26] MEDS ORDERED: DOCUSATE SODIUM 100 MG CAPSULE PO PRN (11:03)
[2018-05-26] MEDS ORDERED: MAGNESIUM SULF RIDER 4 GM in PREMIX 1 EACH IV PRN (11:03)
[2018-05-26 12:52] LABS: Barbiturates Screen,Urine Negative (Negative); Benzodiazepines Screen,Urine Negative (Negative); Cannabinoid Screen,Urine Negative (Negative); Opiate Screen,Urine Negative (Negative); Phencyclidine Screen,Urine Negative (Negative)
[2018-05-26] MEDS: ENOXAPARIN 40 MG/0.4 ML SYRINGE SUBCUT SCH (13:25)
[2018-05-26] MEDS ORDERED: SODIUM CHLORIDE 0.9% 1,000 ML IV SCH (13:30)
[2018-05-26] MEDS: AMIODARONE INJ 450 MG in DEXTROSE 5% 241 ML IV SCH ×2 (17:48→20:39)
[2018-05-26] MEDS: ONDANSETRON 4 MG/2 ML VIAL IV PRN (18:49)
[2018-05-26] MEDS: TICAGRELOR 90 MG TABLET PO SCH (20:41)
[2018-05-26] MEDS: METOPROLOL TARTRATE 25 MG TABLET PO SCH (20:41)
[2018-05-26] MEDS ORDERED: ROSUVASTATIN 20 MG TABLET PO SCH (21:00)
[2018-05-27 05:24] LABS: Basophils % 0.3 % (0.0-0.8); Eosinophils # 0.1 10*3/uL (0.0-0.87); Eosinophils % 1.2 % (0.00-10.9); Hematocrit 45.7 VOL% (42.0-52.0); Hemoglobin 15.6 GM/DL (14.0-18.0); Immature Granulocytes % 0.3 %; Immature Granulocytes Absolute 0.02 #; Lymphocytes % 32.5 % (21.2-54.2); Mean Corpuscular HGB Conc 34.1 GM/DL (32-36); Mean Corpuscular Hemoglobin 37 PG (27-34); Mean Corpuscular Volume 108.3 FL (87-102); Mean Platelet Volume 10.4 FL (9.6-12.0); Monocytes # 0.5 10*3/uL (0.11-0.8); Monocytes % 8.7 % (1.7-12.7); Neutrophils # 3.5 10*3/uL (1.4-7.4); Platelet Count 121 T/CUMM (130-400); Red Blood Count 4.22 MC/CUMM (3.8-5.5); Red Cell Distribution Width 12.2 % (9.3-17.3); White Blood Count 6.1 T/CUMM (4-12)
[2018-05-27 05:35] LABS: Osmolality,Calculated 277.3 MOS/KG (273-304)
[2018-05-27] MEDS: ONDANSETRON 4 MG/2 ML VIAL IV PRN (08:21)
[2018-05-27] MEDS: TICAGRELOR 90 MG TABLET PO SCH (08:24)
[2018-05-27] MEDS: METOPROLOL TARTRATE 25 MG TABLET PO SCH (08:53)
[2018-05-27] MEDS ORDERED: ASPIRIN EC 81 MG TABLET PO SCH (09:00)
[2018-05-27] MEDS ORDERED: PANTOPRAZOLE 40 MG TABLET PO SCH (09:00)
[2018-05-27] MEDS: AMIODARONE INJ 450 MG in DEXTROSE 5% 241 ML IV SCH (11:14)
[2018-05-27] MEDS: ENOXAPARIN 40 MG/0.4 ML SYRINGE SUBCUT SCH (11:16)
[2018-05-27 16:58] VITALS: BP 149/81
== END 2018-05-27 18:51 | disposition home or self-care (01) | DRG 310 ==
LOC: EDBD → EDUNIT# → N.ED 09:53 → N.EDINP 11:03 → N.ICU 12:25 → N.TELES 14:50
PROVIDERS: ADMIT Internal Medicine Interventional Cardiology; ATTEND Internal Medicine Interventional Cardiology

== ENCOUNTER 2020-01-29 19:22 | Inpatient (IN) ==
[2020-01-29] MEDS ORDERED: ONDANSETRON 4 MG/2 ML VIAL ONE (19:32)
[2020-01-29] MEDS ORDERED: NITROGLYCERIN SL 0.4 MG TABLET SL ONE (19:32)
[2020-01-29] MEDS ORDERED: ASPIRIN 325 MG TABLET ONE (19:34)
[2020-01-29] MEDS ORDERED: MORPHINE 4 MG/1 ML VIAL ONE (19:34)
[2020-01-29] MEDS ORDERED: CLOPIDOGREL 300 MG TABLET ONE (19:40)
[2020-01-29] MEDS ORDERED: NITROGLYCERIN SL 0.4 MG TABLET SL PRN (19:51)
[2020-01-29] MEDS ORDERED: ONDANSETRON 4 MG/2 ML VIAL IV STA (19:51)
[2020-01-29] MEDS ORDERED: ASPIRIN 325 MG TABLET PO STA (19:51)
[2020-01-29] MEDS ORDERED: CLOPIDOGREL 300 MG TABLET PO STA (19:51)
[2020-01-29] MEDS ORDERED: MORPHINE 4 MG/1 ML VIAL IV ONE (19:51)
[2020-01-29 19:54] LABS: Basophils % 0.4 % (0.0-0.8); Eosinophils % 0.4 % (0.00-10.9); Hematocrit 48.4 VOL% (42.0-52.0); Immature Granulocytes % 0.4 %; Immature Granulocytes Absolute 0.03 #; Lymphocytes # 2.1 10*3/uL (1.4-4.0); Lymphocytes % 27.1 % (21.2-54.2); Mean Corpuscular HGB Conc 35.1 GM/DL (32-36); Mean Corpuscular Volume 110.3 FL (87-102); Mean Platelet Volume 9.9 FL (9.6-12.0); Monocytes % 9.4 % (1.7-12.7); Neutrophils % 62.3 % (38.7-73.9); Platelet Count 100 T/CUMM (130-400); Red Blood Count 4.39 MC/CUMM (3.8-5.5); Red Cell Distribution Width 13.4 % (9.3-17.3); White Blood Count 7.7 T/CUMM (4-12)
[2020-01-29] MEDS ORDERED: METOPROLOL TARTRATE 5 MG/5 ML VIAL IV SCH (20:00)
[2020-01-29 20:05] LABS: Albumin 3.4 G/DL (3.4-5.0); Bilirubin,Total 0.8 MG/DL (0.2-1.0); Calcium 8.9 MG/DL (8.5-10.1); Osmolality,Calculated 258.8 MOS/KG (273-304); Total Protein 7.3 G/DL (6.4-8.3)
[2020-01-29] MEDS ORDERED: LIDOCAINE 1% 20 ML VIAL ONE (20:11)
[2020-01-29] MEDS ORDERED: fentaNYL 100 MCG/2 ML VIAL ONE (20:12)
[2020-01-29] MEDS ORDERED: MIDAZOLAM 2 MG/2 ML VIAL ONE (20:12)
[2020-01-29] MEDS ORDERED: ENOXAPARIN 30 MG/0.3 ML SYRINGE ONE (20:35)
[2020-01-29] MEDS ORDERED: TIROFIBAN 5,000 MCG/100 ML PREMIX IV ONE (20:36)
[2020-01-29] MEDS ORDERED: SODIUM CHLORIDE 0.9% 1,000 ML IV SCH (21:30)
[2020-01-29] MEDS: TIROFIBAN 5,000 MCG/100 ML PREMIX IV SCH (21:35)
[2020-01-30 04:54] LABS: Basophils % 0.4 % (0.0-0.8); Eosinophils # 0.1 10*3/uL (0.0-0.87); Eosinophils % 0.9 % (0.00-10.9); Hematocrit 41.6 VOL% (42.0-52.0); Hemoglobin 14.5 GM/DL (14.0-18.0); Immature Granulocytes % 0.4 %; Immature Granulocytes Absolute 0.02 #; Lymphocytes # 1.8 10*3/uL (1.4-4.0); Lymphocytes % 31.1 % (21.2-54.2); Mean Corpuscular HGB Conc 34.9 GM/DL (32-36); Mean Corpuscular Volume 108.6 FL (87-102); Monocytes % 8.8 % (1.7-12.7); Neutrophils % 58.4 % (38.7-73.9); Platelet Count 79 T/CUMM (130-400); Red Blood Count 3.83 MC/CUMM (3.8-5.5); Red Cell Distribution Width 13.2 % (9.3-17.3); White Blood Count 5.7 T/CUMM (4-12)
[2020-01-30 05:41] LABS: Osmolality,Calculated 265.1 MOS/KG (273-304); Risk Ratio 1.7; VLDL CHOLESTEROL 13.2 MG/DL
[2020-01-30] MEDS: TIROFIBAN 5,000 MCG/100 ML PREMIX IV SCH (05:44)
[2020-01-30 05:47] LABS: Troponin I 58.4 NG/ML (0.00-0.045)
[2020-01-30 06:35] LABS: Platelet Estimate Decreased
[2020-01-30] MEDS: ASPIRIN EC 81 MG TABLET PO SCH (09:25)
[2020-01-30] MEDS: METOPROLOL TARTRATE 50 MG TABLET PO SCH ×2 (09:25→21:02)
[2020-01-30] MEDS: PANTOPRAZOLE 40 MG TABLET PO SCH (09:25)
[2020-01-30] MEDS: CLOPIDOGREL 75 MG TABLET PO SCH (09:25)
[2020-01-30] MEDS ORDERED: diphenhydrAMINE CAP 25 MG CAPSULE PO PRN (12:48)
[2020-01-30] MEDS ORDERED: IBUPROFEN 200 MG TABLET PO PRN (12:48)
[2020-01-30] MEDS ORDERED: ONDANSETRON 4 MG/2 ML VIAL IV PRN (12:48)
[2020-01-30] MEDS ORDERED: MAGNESIUM HYDROXIDE SUSP 30 ML UDCUP PO PRN (12:48)
[2020-01-30] MEDS ORDERED: TEMAZEPAM 7.5 MG CAPSULE PO PRN (12:48)
[2020-01-30] MEDS ORDERED: DIAZEPAM 2 MG TABLET PO PRN (12:49)
[2020-01-30] MEDS: FOLIC ACID 1 MG TABLET PO SCH ×2 (13:27→21:04)
[2020-01-30] MEDS ORDERED: ROSUVASTATIN 20 MG TABLET PO SCH (21:00)
[2020-01-31 05:25] LABS: Basophils % 0.2 % (0.0-0.8); Eosinophils # 0.1 10*3/uL (0.0-0.87); Eosinophils % 0.9 % (0.00-10.9); Hematocrit 42.6 VOL% (42.0-52.0); Hemoglobin 14.7 GM/DL (14.0-18.0); Immature Granulocytes % 0.4 %; Immature Granulocytes Absolute 0.02 #; Lymphocytes # 1.7 10*3/uL (1.4-4.0); Lymphocytes % 30.7 % (21.2-54.2); Mean Corpuscular HGB Conc 34.5 GM/DL (32-36); Mean Corpuscular Volume 111.5 FL (87-102); Mean Platelet Volume 10.4 FL (9.6-12.0); Monocytes % 7.7 % (1.7-12.7); Neutrophils % 60.1 % (38.7-73.9); Platelet Count 89 T/CUMM (130-400); Red Blood Count 3.82 MC/CUMM (3.8-5.5); Red Cell Distribution Width 13.3 % (9.3-17.3); White Blood Count 5.6 T/CUMM (4-12)
[2020-01-31 05:50] LABS: Calcium 8.2 MG/DL (8.5-10.1); Osmolality,Calculated 268.8 MOS/KG (273-304)
[2020-01-31 06:16] LABS: Eosinophils 1 % (0-10); Lymphocytes 25 % (20-55); Segmented Neutrophils 64 % (50-85)
[2020-01-31 06:17] LABS: Platelet Estimate Decreased; Total Cells Counted 100
[2020-01-31] MEDS ORDERED: lisinopriL 2.5 MG TABLET PO SCH (09:00)
[2020-01-31] MEDS: METOPROLOL TARTRATE 50 MG TABLET PO SCH (09:25)
[2020-01-31] MEDS: CLOPIDOGREL 75 MG TABLET PO SCH (09:26)
[2020-01-31] MEDS: FOLIC ACID 1 MG TABLET PO SCH (09:27)
[2020-01-31] MEDS: ASPIRIN EC 81 MG TABLET PO SCH (09:27)
[2020-01-31] MEDS: PANTOPRAZOLE 40 MG TABLET PO SCH (09:27)
[2020-01-31 11:34] VITALS: BP 130/71
== END 2020-01-31 11:33 | disposition home or self-care (01) | DRG 251 ==
LOC: EDBD → EDUNIT# → N.ED 19:22 → N.TELES 20:10 → N.EDINP 20:43 → N.TELES 21:56
PROVIDERS: ADMIT Internal Medicine Cardiovascular Disease; ATTEND Internal Medicine Cardiovascular Disease
PROC: CLCCHCL (ICD-10-PCS; 2020-01-29 21:00)

== ENCOUNTER 2020-06-15 10:05 | Inpatient (IN) ==
[2020-06-15 10:52] LABS: Basophils % 0.3 % (0.0-0.8); Eosinophils % 0.1 % (0.00-10.9); Hematocrit 34.5 VOL% (42.0-52.0); Hemoglobin 11.8 GM/DL (14.0-18.0); Immature Granulocytes % 0.4 %; Immature Granulocytes Absolute 0.04 #; Lymphocytes # 1.5 10*3/uL (1.4-4.0); Lymphocytes % 16.9 % (21.2-54.2); Mean Corpuscular HGB Conc 34.2 GM/DL (32-36); Mean Corpuscular Volume 106.8 FL (87-102); Mean Platelet Volume 9.8 FL (9.6-12.0); Neutrophils % 76.3 % (38.7-73.9); Platelet Count 124 T/CUMM (130-400); Red Blood Count 3.23 MC/CUMM (3.8-5.5)
[2020-06-15 11:02] LABS: PT Patient Result 10.4 SECS (9.8-11.9)
[2020-06-15 11:19] LABS: Albumin 2.7 G/DL (3.4-5.0); Bilirubin,Total 0.6 MG/DL (0.2-1.0); Calcium 8.8 MG/DL (8.5-10.1); Osmolality,Calculated 270.1 MOS/KG (273-304); Total Protein 7.3 G/DL (6.4-8.3)
[2020-06-15] MEDS ORDERED: ASPIRIN 325 MG TABLET PO STA (11:28)
[2020-06-15] MEDS ORDERED: ONDANSETRON 4 MG/2 ML VIAL IV PRN ×2 (11:45→14:20)
[2020-06-15] MEDS ORDERED: POTASSIUM CHLORIDE 20 MEQ TABLET PO STA ×2 (11:45→14:19)
[2020-06-15] MEDS ORDERED: THIAMINE 200 MG/2 ML VIAL IV STA (11:47)
[2020-06-15] MEDS ORDERED: POTASSIUM CHLORIDE RIDER 10 MEQ in PREMIX 1 EACH IV ONE (11:47)
[2020-06-15 12:36] LABS: Apearance,Urine CLEAR (Clear); Bacteria,Urine Occasional /HPF (Few); Bilirubin,Urine Negative (Negative); Blood, Urine Large mg/dL (Negative); Glucose,Urine (UA) Negative (Negative); Ketones,Urine Negative (Negative); Nitrite,Urine Negative (Negative); Protein,Urine 30 MG/DL; RBC,Urine 1 /HPF (0-4); Urine Color Straw (Yellow); Urine Specific Gravity 1.003 (1.001-1.035); Urine Urobilinogen < 2.0 EU/DL (0.2-1.0); WBC,Urine 1 /HPF (0-6)
[2020-06-15] MEDS ORDERED: SODIUM CHLORIDE 0.9% 1,000 ML IV STA (14:18)
[2020-06-15] MEDS ORDERED: DEXTROSE 50% 25 GM/50 ML VIAL IV PRN (14:20)
[2020-06-15] MEDS ORDERED: GLUCAGON 1 MG VIAL IM PRN (14:20)
[2020-06-15] MEDS ORDERED: NITROGLYCERIN SL 0.4 MG TABLET SL PRN (14:27)
[2020-06-15] MEDS ORDERED: hydrALAZINE 20 MG/1 ML VIAL IV PRN (14:29)
[2020-06-15] MEDS ORDERED: NICOTINE 21 MG/24 HR PATCH TRANSDERM PRN (15:16)
[2020-06-15] MEDS ORDERED: ENOXAPARIN 30 MG/0.3 ML SYRINGE SUBCUT SCH (15:30)
[2020-06-15 16:03] LABS: Hepatitis B Core IgM Quant 0.23 Index; Hepatitis B Surface Ag Quant < 0.10 Index; Hepatitis B Surface Ag Result Negative (Negative); Hepatitis C Virus Ab Quant 0.06 Index; Hepatitis C Virus Ab Result Negative (Negative)
[2020-06-15] MEDS: METOPROLOL SUCCINATE XL 25 MG TABLET PO SCH (20:24)
[2020-06-15] MEDS: ASPIRIN EC 81 MG TABLET PO SCH (20:59)
[2020-06-15] MEDS: TICAGRELOR 90 MG TABLET PO SCH (20:59)
[2020-06-15] MEDS: PANTOPRAZOLE 40 MG TABLET PO SCH (20:59)
[2020-06-15] MEDS: LORazepam 2 MG/1 ML VIAL IV PRN (23:27)
[2020-06-15] MEDS: SODIUM CHLORIDE 0.9% 1,000 ML IV SCH (23:32)
[2020-06-16] MEDS: SODIUM CHLORIDE 0.9% 1,000 ML IV SCH ×2 (05:10→12:06)
[2020-06-16 06:09] LABS: Basophils % 0.3 % (0.0-0.8); Eosinophils # 0.1 10*3/uL (0.0-0.87); Eosinophils % 0.8 % (0.00-10.9); Hematocrit 25.8 VOL% (42.0-52.0); Immature Granulocytes % 0.7 %; Immature Granulocytes Absolute 0.04 #; Lymphocytes % 16.4 % (21.2-54.2); Mean Corpuscular HGB Conc 34.5 GM/DL (32-36); Mean Corpuscular Volume 107.9 FL (87-102); Mean Platelet Volume 10.4 FL (9.6-12.0); Monocytes % 6.4 % (1.7-12.7); Neutrophils % 75.4 % (38.7-73.9); Red Blood Count 2.39 MC/CUMM (3.8-5.5); Red Cell Distribution Width 12.9 % (9.3-17.3); White Blood Count 6.1 T/CUMM (4-12)
[2020-06-16 06:11] LABS: Hemoglobin 8.9 GM/DL (14.0-18.0); Platelet Count 104 T/CUMM (130-400)
[2020-06-16 06:33] LABS: Albumin 1.8 G/DL (3.4-5.0); Bilirubin,Total 0.7 MG/DL (0.2-1.0); Calcium 7.5 MG/DL (8.5-10.1); Osmolality,Calculated 278.4 MOS/KG (273-304); Risk Ratio 1.68; Thyroid Stimulating Hormone 2.63 uIU/ml (0.358-3.74); Total Protein 5.2 G/DL (6.4-8.3)
[2020-06-16] MEDS: TICAGRELOR 90 MG TABLET PO SCH ×2 (08:16→21:59)
[2020-06-16] MEDS ORDERED: MAGNESIUM SULF RIDER 4 GM in PREMIX 1 EACH IV PRN (08:17)
[2020-06-16 08:40] LABS: % Iron Saturation 27.7 % (18-50)
[2020-06-16] MEDS: POTASSIUM CHLORIDE RIDER 10 MEQ in PREMIX 1 EACH IV PRN ×5 (08:42→14:06)
[2020-06-16 09:12] LABS: Folate 3.7 NG/ML (5.4-24.0)
[2020-06-16] MEDS: FOLIC ACID 1 MG TABLET PO SCH (12:02)
[2020-06-16] MEDS: CYANOCOBALAMIN 500 MCG TABLET PO SCH (12:02)
[2020-06-16] MEDS ORDERED: TEMAZEPAM 15 MG CAPSULE PO PRN (12:04)
[2020-06-16] MEDS: POTASSIUM CHLORIDE 20 MEQ TABLET PO SCH ×2 (14:07→21:32)
[2020-06-16] MEDS: MAGNESIUM SULF RIDER 2 GM in PREMIX 1 EACH IV PRN (15:15)
[2020-06-16] MEDS: PANTOPRAZOLE 40 MG TABLET PO SCH (21:32)
[2020-06-16] MEDS: ASPIRIN EC 81 MG TABLET PO SCH (21:58)
[2020-06-16] MEDS: METOPROLOL SUCCINATE XL 25 MG TABLET PO SCH (21:59)
[2020-06-16] MEDS: LORazepam 2 MG/1 ML VIAL IV PRN (23:27)
[2020-06-17] MEDS: SODIUM CHLORIDE 0.9% 1,000 ML IV SCH ×3 (05:30→08:49)
[2020-06-17 06:21] LABS: Basophils % 0.3 % (0.0-0.8); Eosinophils # 0.1 10*3/uL (0.0-0.87); Eosinophils % 1.1 % (0.00-10.9); Hematocrit 25.8 VOL% (42.0-52.0); Hemoglobin 8.9 GM/DL (14.0-18.0); Immature Granulocytes % 0.3 %; Immature Granulocytes Absolute 0.02 #; Lymphocytes % 16.6 % (21.2-54.2); Mean Corpuscular HGB Conc 34.5 GM/DL (32-36); Mean Corpuscular Volume 107.5 FL (87-102); Mean Platelet Volume 10.6 FL (9.6-12.0); Monocytes % 5.7 % (1.7-12.7); Platelet Count 104 T/CUMM (130-400); Red Cell Distribution Width 12.9 % (9.3-17.3); White Blood Count 6.1 T/CUMM (4-12)
[2020-06-17 06:54] LABS: Albumin 1.9 G/DL (3.4-5.0); Bilirubin,Total 0.4 MG/DL (0.2-1.0); Calcium 7.4 MG/DL (8.5-10.1); Osmolality,Calculated 280.3 MOS/KG (273-304); Total Protein 5.2 G/DL (6.4-8.3)
[2020-06-17] MEDS: POTASSIUM CHLORIDE RIDER 10 MEQ in PREMIX 1 EACH IV SCH ×3 (08:30→11:12)
[2020-06-17] MEDS: FOLIC ACID 1 MG TABLET PO SCH (08:42)
[2020-06-17] MEDS: CYANOCOBALAMIN 500 MCG TABLET PO SCH (08:42)
[2020-06-17] MEDS ORDERED: LIDOCAINE 2% 5 ML VIAL ONE (09:00)
[2020-06-17] MEDS ORDERED: propofoL 200 MG/20 ML VIAL IV ONE (09:00)
[2020-06-17] MEDS: TICAGRELOR 90 MG TABLET PO SCH ×3 (09:55→21:21)
[2020-06-17] MEDS: POTASSIUM CHLORIDE 20 MEQ TABLET PO SCH ×2 (09:55→21:21)
[2020-06-17] MEDS: POLYETHYLENE GLYCOL POWDER 17 GM PACK PO SCH (15:00)
[2020-06-17] MEDS: MAGNESIUM SULF RIDER 2 GM in PREMIX 1 EACH IV PRN (15:30)
[2020-06-17] MEDS: POTASSIUM CHLORIDE RIDER 10 MEQ in PREMIX 1 EACH IV PRN ×3 (18:46→21:21)
[2020-06-17] MEDS: ASPIRIN EC 81 MG TABLET PO SCH (21:21)
[2020-06-17] MEDS: PANTOPRAZOLE 40 MG TABLET PO SCH (21:21)
[2020-06-17] MEDS: METOPROLOL SUCCINATE XL 25 MG TABLET PO SCH (21:22)
[2020-06-17] MEDS: LORazepam 2 MG/1 ML VIAL IV PRN (22:26)
[2020-06-18 04:31] LABS: Basophils % 0.3 % (0.0-0.8); Eosinophils # 0.1 10*3/uL (0.0-0.87); Eosinophils % 1.7 % (0.00-10.9); Hematocrit 26.6 VOL% (42.0-52.0); Hemoglobin 8.9 GM/DL (14.0-18.0); Immature Granulocytes % 0.8 %; Immature Granulocytes Absolute 0.05 #; Lymphocytes # 1.2 10*3/uL (1.4-4.0); Lymphocytes % 19.6 % (21.2-54.2); Mean Corpuscular HGB Conc 33.5 GM/DL (32-36); Mean Corpuscular Volume 109.5 FL (87-102); Mean Platelet Volume 9.9 FL (9.6-12.0); Monocytes % 6.2 % (1.7-12.7); Neutrophils % 71.4 % (38.7-73.9); Platelet Count 107 T/CUMM (130-400); Red Blood Count 2.43 MC/CUMM (3.8-5.5); White Blood Count 6.3 T/CUMM (4-12)
[2020-06-18 04:52] LABS: Calcium 7.4 MG/DL (8.5-10.1); Osmolality,Calculated 276.5 MOS/KG (273-304)
[2020-06-18] MEDS: SODIUM CHLORIDE 0.9% 1,000 ML IV SCH (07:23)
[2020-06-18 08:11] VITALS: BP 121/75
[2020-06-18] MEDS ORDERED: FUROSEMIDE 40 MG TABLET PO ONE (10:40)
[2020-06-18] MEDS: POTASSIUM CHLORIDE 20 MEQ TABLET PO SCH (10:48)
[2020-06-18] MEDS: CYANOCOBALAMIN 500 MCG TABLET PO SCH (10:48)
[2020-06-18] MEDS: FOLIC ACID 1 MG TABLET PO SCH (10:48)
[2020-06-18] MEDS: TICAGRELOR 90 MG TABLET PO SCH (10:48)
[2020-06-18] MEDS: POLYETHYLENE GLYCOL POWDER 17 GM PACK PO SCH (10:56)
== END 2020-06-18 12:00 | disposition home or self-care (01) | DRG 69 ==
LOC: EDUNIT# → EDBD → N.EDINP 10:05 → N.ED 10:05 → N.TELEN 15:41
PROVIDERS: ADMIT Internal Medicine; ATTEND Internal Medicine

== ENCOUNTER 2021-03-16 06:06 | Inpatient (IN) ==
[~2021-03-16 06:06] MED LIST: ASPIRIN 325 MG TABLET PO ONE; DIAZEPAM 5 MG TABLET PO ONE; MAGNESIUM SULF RIDER 2 GM/50 ML PREMIX IV PRN; POTASSIUM CHLORIDE RIDER 10 MEQ/100 ML PREMIX IV PRN; diphenhydrAMINE CAP 50 MG CAPSULE PO ONE
[2021-03-16] MEDS ORDERED: DEXTROSE 5% NACL 0.45% 1,000 ML IV SCH (06:30)
[2021-03-16] MEDS ORDERED: diphenhydrAMINE CAP 50 MG CAPSULE ONE (06:54)
[2021-03-16] MEDS ORDERED: DIAZEPAM 5 MG TABLET ONE (06:54)
[2021-03-16] MEDS ORDERED: ASPIRIN 325 MG TABLET ONE (06:54)
[2021-03-16] MEDS ORDERED: LIDOCAINE 1%/EPI INJ 20 ML VIAL ONE (07:22)
[2021-03-16] MEDS ORDERED: HEPARIN/NACL 0.9% 2 UNITS/ML 2,000 UNIT/1,000 ML BAG IV ONE (07:22)
[2021-03-16] MEDS ORDERED: fentaNYL 100 MCG/2 ML VIAL ONE (07:23)
[2021-03-16] MEDS ORDERED: MIDAZOLAM 2 MG/2 ML VIAL ONE (07:23)
[2021-03-16] MEDS ORDERED: NITROGLYCERIN SL 0.4 MG TABLET SL PRN (08:52)
[2021-03-16] MEDS ORDERED: TICAGRELOR 90 MG TABLET PO SCH (09:00)
[2021-03-16] MEDS: HEPARIN DRIP 25,000 UNITS/500 ML PREMIX IV SCH (11:13)
[2021-03-16] MEDS ORDERED: GLUCAGON 1 MG VIAL IM PRN (14:28)
[2021-03-16] MEDS ORDERED: DEXTROSE 50% 25 GM/50 ML VIAL IV PRN (14:28)
[2021-03-16] MEDS ORDERED: NICOTINE 21 MG/24 HR PATCH TRANSDERM PRN (15:50)
[2021-03-16] MEDS ORDERED: HEPARIN 5,000 UNIT/1 ML VIAL IV ONE (17:17)
[2021-03-16] MEDS ORDERED: ACETAMINOPHEN 325 MG TABLET PO ONE (17:47)
[2021-03-16 19:17] LABS: Basophils % 0.2 % (0.0-0.8); Eosinophils % 0.3 % (0.00-10.9); Hematocrit 41.3 VOL% (42.0-52.0); Hemoglobin 13.9 GM/DL (14.0-18.0); Immature Granulocytes % 0.5 %; Immature Granulocytes Absolute 0.05 #; Lymphocytes # 1.5 10*3/uL (1.4-4.0); Lymphocytes % 14.6 % (21.2-54.2); Mean Corpuscular HGB Conc 33.7 GM/DL (32-36); Mean Corpuscular Volume 96.7 FL (87-102); Mean Platelet Volume 10.5 FL (9.6-12.0); Monocytes % 6.4 % (1.7-12.7); Platelet Count 138 T/CUMM (130-400); Red Blood Count 4.27 MC/CUMM (3.8-5.5); Red Cell Distribution Width 13.1 % (9.3-17.3); White Blood Count 10.4 T/CUMM (4-12)
[2021-03-16] MEDS: ASPIRIN EC 81 MG TABLET PO SCH (20:42)
[2021-03-17 06:06] LABS: Basophils % 0.4 % (0.0-0.8); Eosinophils # 0.1 10*3/uL (0.0-0.87); Hematocrit 40.5 VOL% (42.0-52.0); Hemoglobin 13.9 GM/DL (14.0-18.0); Immature Granulocytes % 0.3 %; Immature Granulocytes Absolute 0.02 #; Lymphocytes # 1.8 10*3/uL (1.4-4.0); Lymphocytes % 23.6 % (21.2-54.2); Mean Corpuscular HGB Conc 34.3 GM/DL (32-36); Mean Corpuscular Volume 96.4 FL (87-102); Monocytes % 10.2 % (1.7-12.7); Neutrophils % 64.5 % (38.7-73.9); Platelet Count 120 T/CUMM (130-400); Red Cell Distribution Width 13.2 % (9.3-17.3); White Blood Count 7.6 T/CUMM (4-12)
[2021-03-17 06:23] LABS: Calcium 8.8 MG/DL (8.5-10.1); Osmolality,Calculated 270.8 MOS/KG (273-304); Potassium 3.6 MMOL/L (3.5-5.1)
[2021-03-17 06:43] LABS: Hypochromasia 1+; Platelet Estimate Normal
[2021-03-17 07:07] LABS: Bilirubin,Urine Negative (Negative); Blood, Urine Negative (Negative); Glucose,Urine (UA) Negative (Negative); Ketones,Urine Negative (Negative); Mucus,Urine Occasional /LPF (Occasional); Nitrite,Urine Negative (Negative); Protein,Urine Negative; RBC,Urine 1 /HPF (0-4); Squamous Epithelial Cell,Urine Occasional /HPF (0-10); Urine Appearance CLEAR (Clear); Urine Color Yellow (Yellow); Urine Specific Gravity 1.009 (1.001-1.035); Urine Urobilinogen < 2.0 EU/DL (0.2-1.0)
[2021-03-17] MEDS: MULTIVITAMIN (CENTRUM) TABLET PO SCH (08:56)
[2021-03-17] MEDS: HEPARIN DRIP 25,000 UNITS/500 ML PREMIX IV SCH (13:05)
[2021-03-17] MEDS: DOCUSATE SODIUM 100 MG CAPSULE PO SCH (21:06)
[2021-03-17] MEDS: ASPIRIN EC 81 MG TABLET PO SCH (21:06)
[2021-03-17] MEDS: ROSUVASTATIN 20 MG TABLET PO SCH (21:06)
[2021-03-17] MEDS: CLORAZEPATE 7.5 MG TABLET PO PRN (23:11)
[2021-03-18 04:26] LABS: Basophils % 0.5 % (0.0-0.8); Eosinophils # 0.2 10*3/uL (0.0-0.87); Eosinophils % 2.7 % (0.00-10.9); Hemoglobin 13.7 GM/DL (14.0-18.0); Immature Granulocytes % 0.3 %; Immature Granulocytes Absolute 0.02 #; Lymphocytes # 2.3 10*3/uL (1.4-4.0); Lymphocytes % 35.6 % (21.2-54.2); Mean Corpuscular HGB Conc 33.4 GM/DL (32-36); Mean Corpuscular Volume 97.6 FL (87-102); Mean Platelet Volume 10.2 FL (9.6-12.0); Monocytes % 10.6 % (1.7-12.7); Neutrophils % 50.3 % (38.7-73.9); Platelet Count 135 T/CUMM (130-400); Red Cell Distribution Width 12.9 % (9.3-17.3); White Blood Count 6.3 T/CUMM (4-12)
[2021-03-18 04:39] LABS: Calcium 8.4 MG/DL (8.5-10.1)
[2021-03-18 04:42] LABS: Risk Ratio 3.03; VLDL CHOLESTEROL 26.8 MG/DL
[2021-03-18 04:50] LABS: Eosinophils 3 % (0-10); Lymphocytes 32 % (20-55); Segmented Neutrophils 52 % (50-85); Total Cells Counted 100
[2021-03-18] MEDS: MULTIVITAMIN (CENTRUM) TABLET PO SCH (08:46)
[2021-03-18] MEDS: DOCUSATE SODIUM 100 MG CAPSULE PO SCH ×2 (08:46→20:08)
[2021-03-18] MEDS: HEPARIN DRIP 25,000 UNITS/500 ML PREMIX IV SCH (14:13)
[2021-03-18] MEDS: ROSUVASTATIN 20 MG TABLET PO SCH (20:09)
[2021-03-18] MEDS: ASPIRIN EC 81 MG TABLET PO SCH (20:09)
[2021-03-19 05:20] LABS: Basophils % 0.3 % (0.0-0.8); Eosinophils # 0.2 10*3/uL (0.0-0.87); Eosinophils % 2.8 % (0.00-10.9); Hematocrit 39.1 VOL% (42.0-52.0); Hemoglobin 13.5 GM/DL (14.0-18.0); Immature Granulocytes % 0.4 %; Immature Granulocytes Absolute 0.03 #; Lymphocytes % 28.4 % (21.2-54.2); Mean Corpuscular HGB Conc 34.5 GM/DL (32-36); Mean Platelet Volume 11.2 FL (9.6-12.0); Monocytes % 13.4 % (1.7-12.7); Neutrophils % 54.7 % (38.7-73.9); Platelet Count 121 T/CUMM (130-400); Red Blood Count 4.03 MC/CUMM (3.8-5.5); Red Cell Distribution Width 12.7 % (9.3-17.3); White Blood Count 7.2 T/CUMM (4-12)
[2021-03-19 05:40] LABS: Platelet Estimate Normal
[2021-03-19 05:41] LABS: Calcium 8.5 MG/DL (8.5-10.1); Osmolality,Calculated 278.3 MOS/KG (273-304); Potassium 4.1 MMOL/L (3.5-5.1)
[2021-03-19] MEDS: DOCUSATE SODIUM 100 MG CAPSULE PO SCH ×2 (08:44→20:28)
[2021-03-19] MEDS: MULTIVITAMIN (CENTRUM) TABLET PO SCH (08:44)
[2021-03-19] MEDS ORDERED: ACETAMINOPHEN 325 MG TABLET PO PRN (13:04)
[2021-03-19] MEDS: HEPARIN DRIP 25,000 UNITS/500 ML PREMIX IV SCH (13:19)
[2021-03-19] MEDS: CLORAZEPATE 7.5 MG TABLET PO PRN (15:31)
[2021-03-19] MEDS: ASPIRIN EC 81 MG TABLET PO SCH (20:28)
[2021-03-19] MEDS: ROSUVASTATIN 20 MG TABLET PO SCH (20:28)
[2021-03-20 04:23] LABS: ABG Base Excess -2.2 MMOL/L (-2.5-2.5); ABG HCO3 22.8 MMOL/L (20-26); ABG PCO2 39.9 MM HG (35-48); ABG PH 7.374 (7.35-7.45); ABG PO2 73.8 MM HG (80-95)
[2021-03-20 05:24] LABS: Basophils % 0.3 % (0.0-0.8); Eosinophils # 0.2 10*3/uL (0.0-0.87); Eosinophils % 3.8 % (0.00-10.9); Hematocrit 37.9 VOL% (42.0-52.0); Hemoglobin 12.9 GM/DL (14.0-18.0); Immature Granulocytes % 0.3 %; Immature Granulocytes Absolute 0.02 #; Lymphocytes % 30.9 % (21.2-54.2); Mean Corpuscular Volume 97.2 FL (87-102); Mean Platelet Volume 10.8 FL (9.6-12.0); Monocytes % 13.1 % (1.7-12.7); Neutrophils % 51.6 % (38.7-73.9); Platelet Count 118 T/CUMM (130-400); Red Cell Distribution Width 12.7 % (9.3-17.3); White Blood Count 6.4 T/CUMM (4-12)
[2021-03-20 05:49] LABS: Albumin 2.8 G/DL (3.4-5.0); Bilirubin,Total 0.6 MG/DL (0.2-1.0); Calcium 8.7 MG/DL (8.5-10.1); Osmolality,Calculated 276.5 MOS/KG (273-304); Total Protein 6.6 G/DL (6.4-8.2)
[2021-03-20] MEDS: DOCUSATE SODIUM 100 MG CAPSULE PO SCH ×2 (08:52→20:29)
[2021-03-20] MEDS: CHLORHEXIDINE 0.12% ORAL RINSE 60 ML BOTTLE SWISH/SPIT SCH ×2 (08:52→20:34)
[2021-03-20] MEDS: MULTIVITAMIN (CENTRUM) TABLET PO SCH (08:52)
[2021-03-20] MEDS ORDERED: CHLORHEXIDINE 4% SOLN 118 ML BOTTLE TOP SCH (09:00)
[2021-03-20] MEDS ORDERED: SODIUM CHLORIDE 0.9% 1,000 ML IV SCH (14:30)
[2021-03-20] MEDS: CHLORHEXIDINE 4% SOLN 118 ML BOTTLE TOP SCH ×2 (15:03→20:38)
[2021-03-20] MEDS: ROSUVASTATIN 20 MG TABLET PO SCH (20:28)
[2021-03-20] MEDS: ASPIRIN EC 81 MG TABLET PO SCH (20:29)
[2021-03-20] MEDS: CLORAZEPATE 7.5 MG TABLET PO PRN (20:29)
[2021-03-21] MEDS ORDERED: PAPAVERINE 60 MG/2 ML VIAL ONE (04:23)
[2021-03-21] MEDS ORDERED: VANCOMYCIN 500 MG VIAL ONE (04:23)
[2021-03-21] MEDS ORDERED: VANCOMYCIN 1,000 MG VIAL ONE (04:23)
[2021-03-21] MEDS ORDERED: CEFUROXIME INJ 1,500 MG in SODIUM CHLORIDE 0.9% 100 ML IV ONE (05:00)
[2021-03-21] MEDS: CHLORHEXIDINE 4% SOLN 118 ML BOTTLE TOP SCH (05:21)
[2021-03-21] MEDS ORDERED: DIAZEPAM 5 MG TABLET PO ONE (06:00)
[2021-03-21] MEDS ORDERED: FAMOTIDINE 20 MG TABLET PO ONE (06:00)
[2021-03-21] MEDS ORDERED: MINERAL OIL/PETROLATUM OPH OINT 3.5 GM TUBE ONE (06:05)
[2021-03-21] MEDS ORDERED: LACTATED RINGERS 1,000 ML IV ONE (06:06)
[2021-03-21] MEDS ORDERED: HEPARIN/NACL 0.9% 2 UNITS/ML 1,000 UNIT/500 ML BAG IV ONE (06:06)
[2021-03-21] MEDS ORDERED: SODIUM CHLORIDE 0.9% 250 ML IV ONE (06:06)
[2021-03-21] MEDS ORDERED: SODIUM CHLORIDE 0.9% 1,000 ML IV ONE (06:06)
[2021-03-21] MEDS ORDERED: PHENYLEPHRINE DRIP 20 MG/250 ML PREMIX IV ONE (06:06)
[2021-03-21] MEDS ORDERED: AMINOCAPROIC ACID 5,000 MG/20 ML VIAL ONE (06:10)
[2021-03-21] MEDS ORDERED: ETOMIDATE 40 MG/20 ML VIAL IV ONE ×2 (06:10→06:14)
[2021-03-21] MEDS ORDERED: LIDOCAINE 2% 5 ML VIAL ONE ×2 (06:13→11:12)
[2021-03-21] MEDS ORDERED: VECURONIUM 10 MG VIAL IV ONE ×4 (06:14→08:54)
[2021-03-21] MEDS ORDERED: CALCIUM CHLORIDE 1,000 MG/10 ML VIAL IV ONE ×2 (06:14→11:11)
[2021-03-21] MEDS ORDERED: ePHEDrine 50 MG/ML VIAL ONE (06:17)
[2021-03-21] MEDS ORDERED: MIDAZOLAM 10 MG/2 ML VIAL ONE ×4 (06:18→08:54)
[2021-03-21] MEDS ORDERED: fentaNYL 250 MCG/5 ML VIAL ONE (06:18)
[2021-03-21] MEDS ORDERED: SUFentanil 250 MCG/5 ML AMP ONE ×2 (06:19→07:48)
[2021-03-21 06:36] LABS: Calcium 8.8 MG/DL (8.5-10.1); Osmolality,Calculated 275.5 MOS/KG (273-304); Potassium 4.2 MMOL/L (3.5-5.1)
[2021-03-21] MEDS ORDERED: NITROPRUSSIDE 50 MG/2 ML VIAL ONE (06:54)
[2021-03-21] MEDS ORDERED: SODIUM BICARBONATE 50 MEQ/50 ML VIAL IV ONE ×2 (06:54→11:14)
[2021-03-21] MEDS ORDERED: POTASSIUM CHLORIDE RIDER 20 MEQ/100 ML PREMIX IV ONE (06:54)
[2021-03-21] MEDS ORDERED: CALCIUM CHLORIDE 1,000 MG/10 ML SYRINGE IV ONE (06:55)
[2021-03-21] MEDS ORDERED: PHENYLEPHRINE DRIP 40 MG/250 ML PREMIX IV ONE (06:55)
[2021-03-21 07:35] LABS: ABG Base Excess -5.9 MMOL/L (-2.5-2.5); ABG HCO3 20.5 MMOL/L (20-26); ABG Oxygen Saturation 99.5 % (95-100); ABG PCO2 43.7 MM HG (35-48); ABG PH 7.289 (7.35-7.45); ABG TCO2 21.8 MMOL/L (23-27); Glucose Heart Surgery 98 MG/DL (74-106); Ionized Calcium Arterial 1.13 MMOL/L (1.21-1.46); PCO2 Patient Temp Arterial 43.7 MMHG; PH Patient Temp Arterial 7.289; PO2 Patient Temp Arterial 538.1 MM HG; Patient Temperature 37 CELCIUS; Potassium Heart/CVR 4.2 MMOL/L (3.5-5.1); Sodium Heart/CVR 135 MMOL/L (135-145)
[2021-03-21 07:36] LABS: ABG PO2 538.1 MM HG (80-95)
[2021-03-21 07:39] LABS: Bilirubin,Urine Negative (Negative); Blood, Urine Negative (Negative); Glucose,Urine (UA) Negative (Negative); Ketones,Urine Negative (Negative); Nitrite,Urine Negative (Negative); Protein,Urine Negative; RBC,Urine 1 /HPF (0-4); Squamous Epithelial Cell,Urine Occasional /HPF (0-10); Urine Appearance CLEAR (Clear); Urine Color Straw (Yellow); Urine Specific Gravity 1.009 (1.001-1.035); Urine Urobilinogen < 2.0 EU/DL (0.2-1.0)
[2021-03-21 08:27] LABS: Hemoglobin Heart Surgery 8.7 G/DL (14.0-18.0); PCO2 Patient Temp Venous 42.5 MM HG; PH Patient Temp Venous 7.318; PO2 Patient Temp Venous 43.3 MM HG; Potassium Heart/CVR 5.5 MMOL/L (3.5-5.1); VBG HCO3 20.9 MEQ/L (24-28); VBG Oxygen Saturation 83.3 %; VBG PCO2 49.1 MMHG (41-51); VBG PH 7.276; VBG Total CO2 21.5 MMOL/L
[2021-03-21] MEDS ORDERED: diphenhydrAMINE 50 MG/1 ML VIAL ONE ×2 (08:54)
[2021-03-21] MEDS ORDERED: FAMOTIDINE 20 MG/2 ML VIAL IV ONE (08:58)
[2021-03-21 09:03] LABS: Hematocrit Heart Surgery 28.7 PERCENT (42-52); Hemoglobin Heart Surgery 9.3 G/DL (14.0-18.0); PCO2 Patient Temp Venous 35.4 MM HG; PH Patient Temp Venous 7.424; PO2 Patient Temp Venous 38.6 MM HG; Potassium Heart/CVR 5.9 MMOL/L (3.5-5.1); VBG Base Excess -0.8 MEQ/L (0-4); VBG HCO3 23.5 MEQ/L (24-28); VBG Oxygen Saturation 83.4 %; VBG PCO2 40.9 MMHG (41-51); VBG PH 7.381; VBG PO2 47.5 MMHG (17-40); VBG Total CO2 22.4 MMOL/L
[2021-03-21 09:30] LABS: Hematocrit Heart Surgery 29.4 PERCENT (42-52); Hemoglobin Heart Surgery 9.5 G/DL (14.0-18.0); PCO2 Patient Temp Venous 36.7 MM HG; PH Patient Temp Venous 7.411; PO2 Patient Temp Venous 39.3 MM HG; Potassium Heart/CVR 5.7 MMOL/L (3.5-5.1); VBG Base Excess -0.9 MEQ/L (0-4); VBG HCO3 23.4 MEQ/L (24-28); VBG Oxygen Saturation 83.3 %; VBG PCO2 42.4 MMHG (41-51); VBG PH 7.368; VBG PO2 48.3 MMHG (17-40); VBG Total CO2 22.5 MMOL/L
[2021-03-21 10:01] LABS: Hematocrit Heart Surgery 29.4 PERCENT (42-52); Hemoglobin Heart Surgery 9.5 G/DL (14.0-18.0); PCO2 Patient Temp Venous 41.5 MM HG; PH Patient Temp Venous 7.394; PO2 Patient Temp Venous 39.4 MM HG; Potassium Heart/CVR 5.2 MMOL/L (3.5-5.1); VBG Base Excess 0.5 MEQ/L (0-4); VBG HCO3 24.5 MEQ/L (24-28); VBG Oxygen Saturation 73.8 %; VBG PCO2 41.5 MMHG (41-51); VBG PH 7.394; VBG PO2 39.4 MMHG (17-40); VBG Total CO2 23.4 MMOL/L
[2021-03-21] MEDS ORDERED: THROMBIN TOPICAL (RECOMBINANT) 5,000 UNIT VIAL TOP ONE ×2 (10:33→11:41)
[2021-03-21] MEDS ORDERED: SEVOFLURANE 1 UNIT/15 MINUTE INH ONE (10:36)
[2021-03-21 10:51] LABS: Hemoglobin Heart Surgery 8.7 G/DL (14.0-18.0); PCO2 Patient Temp Venous 39.4 MM HG; PH Patient Temp Venous 7.419; PO2 Patient Temp Venous 41.9 MM HG; Potassium Heart/CVR 4.1 MMOL/L (3.5-5.1); VBG HCO3 25.1 MEQ/L (24-28); VBG Oxygen Saturation 78.4 %; VBG PCO2 39.4 MMHG (41-51); VBG PH 7.419; VBG PO2 41.9 MMHG (17-40); VBG Total CO2 23.6 MMOL/L
[2021-03-21] MEDS ORDERED: MAGNESIUM SULFATE 5 GM/10 ML VIAL IV ONE (11:12)
[2021-03-21] MEDS ORDERED: ALBUMIN 25% 25 GM/100 ML VIAL IV ONE (11:12)
[2021-03-21] MEDS ORDERED: HEPARIN 10,000 UNIT/10 ML VIAL ONE (11:13)
[2021-03-21] MEDS ORDERED: PROTAMINE SULFATE 250 MG/25 ML VIAL IV ONE (11:13)
[2021-03-21] MEDS ORDERED: DEXTROSE 5% KCL 20 MEQ 40 MEQ/2,000 ML BAG IV ONE (11:13)
[2021-03-21] MEDS ORDERED: methylPREDNISolone SOD SUC 1,000 MG/8 ML VIAL ONE (11:13)
[2021-03-21] MEDS ORDERED: MANNITOL 100 GM/500 ML BAG IV ONE (11:13)
[2021-03-21] MEDS ORDERED: FUROSEMIDE 20 MG/2 ML VIAL ONE (11:14)
[2021-03-21] MEDS ORDERED: PROTAMINE SULFATE 50 MG/5 ML VIAL IV ONE (11:14)
[2021-03-21 11:22] LABS: ABG HCO3 23.6 MMOL/L (20-26); ABG PH 7.384 (7.35-7.45); ABG TCO2 22.5 MMOL/L (23-27); Glucose Heart Surgery 175 MG/DL (74-106); Hematocrit Heart Surgery 23.5 PERCENT (42-52); Hemoglobin Heart Surgery 7.5 G/DL (14.0-18.0); Ionized Calcium Arterial 1.42 MMOL/L (1.21-1.46); PH Patient Temp Arterial 7.384; Patient Temperature 37 CELCIUS; Potassium Heart/CVR 3.3 MMOL/L (3.5-5.1); Sodium Heart/CVR 138 MMOL/L (135-145)
[2021-03-21] MEDS ORDERED: SODIUM CHLORIDE 0.9% 200 ML IV ONE (11:36)
[2021-03-21] MEDS ORDERED: MORPHINE 10 MG/1 ML VIAL IV PRN (12:28)
[2021-03-21] MEDS ORDERED: INSULIN REGULAR 100 UNIT/ML IV ONE (12:28)
[2021-03-21] MEDS ORDERED: POTASSIUM CHLORIDE RIDER 10 MEQ/100 ML PREMIX IV PRN (12:28)
[2021-03-21] MEDS ORDERED: ACETAMINOPHEN 650 MG SUPP RECTAL PRN (12:28)
[2021-03-21] MEDS ORDERED: NITROPRUSSIDE 100 MG in DEXTROSE 5% 250 ML IV PRN (12:28)
[2021-03-21] MEDS ORDERED: LACTATED RINGERS 250 ML IV PRN (12:28)
[2021-03-21] MEDS ORDERED: MAGNESIUM SULF RIDER 4 GM/100 ML PREMIX IV PRN (12:28)
[2021-03-21] MEDS ORDERED: INSULIN REGULAR 100 UNIT/ML IV PRN (12:28)
[2021-03-21] MEDS ORDERED: MIDAZOLAM 2 MG/2 ML VIAL IV PRN (12:28)
[2021-03-21] MEDS ORDERED: MAGNESIUM SULF RIDER 2 GM/50 ML PREMIX IV PRN (12:28)
[2021-03-21] MEDS ORDERED: MIDAZOLAM 10 MG/2 ML VIAL IV PRN (12:28)
[2021-03-21] MEDS ORDERED: SODIUM CHLORIDE 0.45% 1,000 ML IV SCH ×2 (12:28)
[2021-03-21] MEDS ORDERED: VECURONIUM 10 MG VIAL IV PRN ×2 (12:28)
[2021-03-21] MEDS ORDERED: CALCIUM CHLORIDE 1,000 MG/10 ML SYRINGE IV PRN (12:28)
[2021-03-21] MEDS ORDERED: INSULIN REGULAR DRIP 100 ML IV SCH (12:28)
[2021-03-21] MEDS ORDERED: MORPHINE 4 MG/1 ML VIAL IV PRN (12:28)
[2021-03-21] MEDS ORDERED: CHLORHEXIDINE 4% SOLN 118 ML BOTTLE TOP PRN (12:28)
[2021-03-21] MEDS ORDERED: ONDANSETRON 4 MG/2 ML VIAL IV PRN (12:28)
[2021-03-21] MEDS ORDERED: PHENYLEPHRINE DRIP 40 MG/250 ML PREMIX IV PRN (12:28)
[2021-03-21] MEDS ORDERED: DEXTROSE 50% 25 GM/50 ML VIAL IV PRN ×2 (12:28)
[2021-03-21] MEDS: LACTATED RINGERS 1,000 ML IV PRN ×4 (12:45→20:17)
[2021-03-21 12:54] LABS: ABG Base Excess -1.2 MMOL/L (-2.5-2.5); ABG HCO3 23.4 MMOL/L (20-26); ABG PCO2 47.6 MM HG (35-48); ABG PH 7.328 (7.35-7.45); ABG TCO2 23.1 MMOL/L (23-27); Glucose Heart Surgery 169 MG/DL (74-106); Hematocrit Heart Surgery 28.6 PERCENT (42-52); Hemoglobin Heart Surgery 9.2 G/DL (14.0-18.0); Potassium Heart/CVR 3.9 MMOL/L (3.5-5.1)
[2021-03-21 12:57] LABS: Basophils % 0.2 % (0.0-0.8); Eosinophils # 0.1 10*3/uL (0.0-0.87); Eosinophils % 0.5 % (0.00-10.9); Hemoglobin 9.1 GM/DL (14.0-18.0); Immature Granulocytes % 0.9 %; Immature Granulocytes Absolute 0.13 #; Lymphocytes # 1.3 10*3/uL (1.4-4.0); Lymphocytes % 8.7 % (21.2-54.2); Mean Corpuscular HGB Conc 33.7 GM/DL (32-36); Mean Corpuscular Volume 94.1 FL (87-102); Mean Platelet Volume 10.2 FL (9.6-12.0); Monocytes % 5.2 % (1.7-12.7); Neutrophils % 84.5 % (38.7-73.9); Platelet Count 137 T/CUMM (130-400); Red Blood Count 2.87 MC/CUMM (3.8-5.5); Red Cell Distribution Width 15.5 % (9.3-17.3); White Blood Count 14.7 T/CUMM (4-12)
[2021-03-21 13:06] LABS: INR 1.1; PT Patient Result 11.9 SECS (10.5-12.0); Partial Thromboplastin Time 27.1 SECS (23.9-33.8)
[2021-03-21] MEDS: ALBUMIN 5% 12.5 GM/250 ML VIAL IV PRN ×5 (13:13→21:47)
[2021-03-21 13:21] LABS: CKMB % 8.3 %
[2021-03-21 13:23] LABS: High Sensitive Troponin I* 8559.3 ng/L (0-78)
[2021-03-21 13:28] LABS: Albumin 2.6 G/DL (3.4-5.0); Bilirubin,Total 0.8 MG/DL (0.2-1.0); Calcium 8.9 MG/DL (8.5-10.1); Osmolality,Calculated 289.7 MOS/KG (273-304); Total Protein 5.3 G/DL (6.4-8.2)
[2021-03-21] MEDS: MULTIVITAMIN (CENTRUM) TABLET PO SCH (13:55)
[2021-03-21] MEDS: CHLORHEXIDINE 0.12% ORAL RINSE 60 ML BOTTLE SWISH/SPIT SCH ×2 (13:56→20:18)
[2021-03-21] MEDS: DOCUSATE SODIUM 100 MG CAPSULE PO SCH (13:56)
[2021-03-21] MEDS: POTASSIUM CHLORIDE RIDER 20 MEQ/100 ML PREMIX IV PRN ×2 (13:58→20:17)
[2021-03-21 14:28] LABS: ABG HCO3 22.7 MMOL/L (20-26); ABG Oxygen Saturation 97.4 % (95-100); ABG PCO2 48.5 MM HG (35-48); ABG PH 7.313 (7.35-7.45); ABG PO2 95.9 MM HG (80-95); ABG TCO2 22.4 MMOL/L (23-27); Glucose Heart Surgery 156 MG/DL (74-106); Hematocrit Heart Surgery 33.3 PERCENT (42-52); Hemoglobin Heart Surgery 10.8 G/DL (14.0-18.0); Potassium Heart/CVR 4.6 MMOL/L (3.5-5.1)
[2021-03-21 15:57] LABS: ABG Base Excess -0.9 MMOL/L (-2.5-2.5); ABG Oxygen Saturation 97.5 % (95-100); ABG PCO2 40.8 MM HG (35-48); ABG PH 7.388 (7.35-7.45); ABG PO2 114.1 MM HG (80-95); ABG TCO2 25.3 MMOL/L (23-27); Glucose Heart Surgery 151 MG/DL (74-106); Hemoglobin Heart Surgery 10.7 G/DL (14.0-18.0); Potassium Heart/CVR 4.3 MMOL/L (3.5-5.1)
[2021-03-21] MEDS: KETOROLAC 30 MG/1 ML VIAL IV SCH ×2 (16:29→22:36)
[2021-03-21] MEDS ORDERED: FUROSEMIDE 40 MG/4 ML VIAL IV PRN (18:25)
[2021-03-21 19:44] LABS: ABG HCO3 23.6 MMOL/L (20-26); ABG Oxygen Saturation 99.2 % (95-100); ABG PCO2 41.3 MM HG (35-48); ABG PH 7.375 (7.35-7.45); Glucose Heart Surgery 172 MG/DL (74-106); Hematocrit Heart Surgery 31.1 PERCENT (42-52); Hemoglobin Heart Surgery 10.1 G/DL (14.0-18.0); Potassium Heart/CVR 4.4 MMOL/L (3.5-5.1)
[2021-03-21 20:06] LABS: CKMB % 6.1 %
[2021-03-21 20:07] LABS: High Sensitive Troponin I* 7871.8 ng/L (0-78)
[2021-03-21] MEDS: CEFUROXIME INJ 1,500 MG in SODIUM CHLORIDE 0.9% 100 ML IV SCH (20:18)
[2021-03-21 21:54] LABS: ABG Base Excess -2.3 MMOL/L (-2.5-2.5); ABG HCO3 22.5 MMOL/L (20-26); ABG Oxygen Saturation 99.2 % (95-100); ABG PCO2 41.7 MM HG (35-48); ABG PH 7.353 (7.35-7.45); ABG TCO2 21.3 MMOL/L (23-27); Glucose Heart Surgery 166 MG/DL (74-106); Hematocrit Heart Surgery 29.5 PERCENT (42-52); Hemoglobin Heart Surgery 9.5 G/DL (14.0-18.0); Potassium Heart/CVR 4.5 MMOL/L (3.5-5.1)
[2021-03-21 23:51] LABS: ABG Base Excess -3.7 MMOL/L (-2.5-2.5); ABG HCO3 21.3 MMOL/L (20-26); ABG Oxygen Saturation 98.1 % (95-100); ABG PCO2 41.4 MM HG (35-48); ABG PH 7.332 (7.35-7.45); ABG TCO2 20.3 MMOL/L (23-27); Glucose Heart Surgery 175 MG/DL (74-106); Hematocrit Heart Surgery 28.2 PERCENT (42-52); Hemoglobin Heart Surgery 9.1 G/DL (14.0-18.0); Potassium Heart/CVR 4.3 MMOL/L (3.5-5.1)
[2021-03-22] MEDS: POTASSIUM CHLORIDE RIDER 20 MEQ/100 ML PREMIX IV PRN ×2 (01:08→03:40)
[2021-03-22] MEDS: LACTATED RINGERS 1,000 ML IV PRN (02:05)
[2021-03-22 02:06] LABS: ABG Base Excess -1.9 MMOL/L (-2.5-2.5); ABG HCO3 22.7 MMOL/L (20-26); ABG Oxygen Saturation 97.3 % (95-100); ABG PCO2 38.3 MM HG (35-48); ABG PH 7.391 (7.35-7.45); ABG PO2 99.9 MM HG (80-95); ABG TCO2 23.9 MMOL/L (23-27); Glucose Heart Surgery 179 MG/DL (74-106); Hemoglobin Heart Surgery 10.7 G/DL (14.0-18.0); Potassium Heart/CVR 4.3 MMOL/L (3.5-5.1)
[2021-03-22 03:24] LABS: ABG Base Excess -1.7 MMOL/L (-2.5-2.5); ABG Oxygen Saturation 98.8 % (95-100); ABG PCO2 38.7 MM HG (35-48); ABG PH 7.383 (7.35-7.45); Glucose Heart Surgery 179 MG/DL (74-106); Hematocrit Heart Surgery 31.1 PERCENT (42-52); Potassium Heart/CVR 4.2 MMOL/L (3.5-5.1)
[2021-03-22 04:33] LABS: ABG Base Excess -1.4 MMOL/L (-2.5-2.5); ABG HCO3 23.3 MMOL/L (20-26); ABG Oxygen Saturation 98.5 % (95-100); ABG PCO2 41.2 MM HG (35-48); ABG TCO2 21.8 MMOL/L (23-27); Glucose Heart Surgery 166 MG/DL (74-106); Hematocrit Heart Surgery 30.4 PERCENT (42-52); Hemoglobin Heart Surgery 9.8 G/DL (14.0-18.0); Potassium Heart/CVR 4.4 MMOL/L (3.5-5.1)
[2021-03-22 04:36] LABS: Basophils % 0.1 % (0.0-0.8); Hematocrit 29.3 VOL% (42.0-52.0); Hemoglobin 9.8 GM/DL (14.0-18.0); Immature Granulocytes % 0.5 %; Immature Granulocytes Absolute 0.07 #; Lymphocytes # 1.2 10*3/uL (1.4-4.0); Lymphocytes % 8.6 % (21.2-54.2); Mean Corpuscular HGB Conc 33.4 GM/DL (32-36); Mean Corpuscular Volume 89.9 FL (87-102); Mean Platelet Volume 10.9 FL (9.6-12.0); Monocytes % 7.1 % (1.7-12.7); Neutrophils % 83.7 % (38.7-73.9); Red Blood Count 3.26 MC/CUMM (3.8-5.5); Red Cell Distribution Width 17.5 % (9.3-17.3); White Blood Count 14.2 T/CUMM (4-12)
[2021-03-22 04:44] LABS: Platelet Count 94 T/CUMM (130-400)
[2021-03-22 04:56] LABS: CKMB % 5.5 %
[2021-03-22 04:58] LABS: High Sensitive Troponin I* 6674.5 ng/L (0-78)
[2021-03-22 05:13] LABS: Hypochromasia 1+; Microcytosis 1+; Platelet Estimate Decreased
[2021-03-22] MEDS: KETOROLAC 30 MG/1 ML VIAL IV SCH ×3 (05:15→20:22)
[2021-03-22 05:18] LABS: Albumin 3.2 G/DL (3.4-5.0); Bilirubin,Direct 0.15 MG/DL (0.0-0.20); Bilirubin,Total 1.4 MG/DL (0.2-1.0); Calcium 7.7 MG/DL (8.5-10.1); Potassium 4.7 MMOL/L (3.5-5.1); Total Protein 5.4 G/DL (6.4-8.2)
[2021-03-22 05:39] LABS: ABG Base Excess -1.3 MMOL/L (-2.5-2.5); ABG HCO3 23.3 MMOL/L (20-26); ABG Oxygen Saturation 97.9 % (95-100); ABG PCO2 42.2 MM HG (35-48); ABG PH 7.363 (7.35-7.45); ABG PO2 96.6 MM HG (80-95); Glucose Heart Surgery 169 MG/DL (74-106); Hematocrit Heart Surgery 30.3 PERCENT (42-52); Hemoglobin Heart Surgery 9.8 G/DL (14.0-18.0); Potassium Heart/CVR 4.3 MMOL/L (3.5-5.1)
[2021-03-22 06:26] LABS: ABG HCO3 22.8 MMOL/L (20-26); ABG Oxygen Saturation 96.8 % (95-100); ABG PCO2 42.4 MM HG (35-48); ABG PH 7.352 (7.35-7.45); ABG PO2 89.6 MM HG (80-95); ABG TCO2 21.5 MMOL/L (23-27); Glucose Heart Surgery 172 MG/DL (74-106); Hematocrit Heart Surgery 31.1 PERCENT (42-52); Potassium Heart/CVR 4.2 MMOL/L (3.5-5.1)
[2021-03-22] MEDS: CEFUROXIME INJ 1,500 MG in SODIUM CHLORIDE 0.9% 100 ML IV SCH ×2 (07:56→20:22)
[2021-03-22] MEDS: ALBUMIN 5% 12.5 GM/250 ML VIAL IV PRN (07:57)
[2021-03-22] MEDS: INSULIN REGULAR 100 UNIT/ML SUBCUT SCH ×4 (08:35→20:01)
[2021-03-22] MEDS: CHLORHEXIDINE 0.12% ORAL RINSE 60 ML BOTTLE SWISH/SPIT SCH ×3 (08:37→20:22)
[2021-03-22] MEDS ORDERED: ALBUTEROL/IPRATROPIUM 3 ML NEB RESP TX ONE (09:26)
[2021-03-22] MEDS ORDERED: ALUMINUM/MAGNES/SIMETH MAX STR 30 ML UDCUP PO PRN (09:28)
[2021-03-22] MEDS ORDERED: MAGNESIUM SULF RIDER 4 GM/100 ML PREMIX IV PRN (09:28)
[2021-03-22] MEDS ORDERED: MAGNESIUM SULF RIDER 2 GM/50 ML PREMIX IV PRN (09:28)
[2021-03-22] MEDS ORDERED: ACETAMINOPHEN 325 MG TABLET PO PRN (09:28)
[2021-03-22] MEDS ORDERED: GLUCAGON 1 MG VIAL IM PRN (09:28)
[2021-03-22] MEDS ORDERED: SODIUM CHLOR 0.45% KCL 20 MEQ 20 MEQ/1,000 ML BAG IV SCH (09:28)
[2021-03-22] MEDS ORDERED: DEXTROSE 50% 25 GM/50 ML VIAL IV PRN (09:28)
[2021-03-22] MEDS ORDERED: POTASSIUM CHLORIDE 20 MEQ TABLET PO PRN (09:28)
[2021-03-22] MEDS ORDERED: MAGNESIUM HYDROXIDE SUSP 30 ML UDCUP PO PRN (09:28)
[2021-03-22] MEDS: DOCUSATE SODIUM 100 MG CAPSULE PO SCH (09:50)
[2021-03-22] MEDS: PANTOPRAZOLE 40 MG TABLET PO SCH (09:51)
[2021-03-22] MEDS: FERROUS SULFATE 325 MG TABLET PO SCH (09:51)
[2021-03-22] MEDS: ASPIRIN EC 81 MG TABLET PO SCH (09:51)
[2021-03-22] MEDS: oxyCODONE/ACETAMINOPHEN 5-325 MG TABLET PO PRN ×3 (12:56→18:20)
[2021-03-22 13:40] LABS: CKMB % 3.3 %
[2021-03-22 13:42] LABS: High Sensitive Troponin I* 5318.7 ng/L (0-78)
[2021-03-22] MEDS: ALBUTEROL/IPRATROPIUM 3 ML NEB RESP TX SCH ×2 (14:00→19:35)
[2021-03-22] MEDS ORDERED: HYDROmorphone 2 MG/1 ML VIAL IV PRN (14:11)
[2021-03-22] MEDS: ASCORBIC ACID 500 MG TABLET PO SCH (20:22)
[2021-03-22] MEDS: ROSUVASTATIN 20 MG TABLET PO SCH (20:22)
[2021-03-23] MEDS: ALBUTEROL/IPRATROPIUM 3 ML NEB RESP TX SCH ×2 (01:00→07:20)
[2021-03-23] MEDS: oxyCODONE/ACETAMINOPHEN 5-325 MG TABLET PO PRN ×2 (01:00→08:03)
[2021-03-23] MEDS: KETOROLAC 30 MG/1 ML VIAL IV SCH ×4 (02:42→20:33)
[2021-03-23] MEDS ORDERED: FUROSEMIDE 40 MG/4 ML VIAL ONE (04:14)
[2021-03-23 05:39] LABS: Basophils % 0.1 % (0.0-0.8); Hematocrit 29.4 VOL% (42.0-52.0); Hemoglobin 9.3 GM/DL (14.0-18.0); Immature Granulocytes % 1.2 %; Immature Granulocytes Absolute 0.22 #; Lymphocytes # 1.5 10*3/uL (1.4-4.0); Lymphocytes % 8.3 % (21.2-54.2); Mean Corpuscular HGB Conc 31.6 GM/DL (32-36); Mean Corpuscular Volume 94.5 FL (87-102); Mean Platelet Volume 11.1 FL (9.6-12.0); Monocytes % 6.8 % (1.7-12.7); Neutrophils % 83.6 % (38.7-73.9); Red Blood Count 3.11 MC/CUMM (3.8-5.5); Red Cell Distribution Width 17.5 % (9.3-17.3); White Blood Count 17.9 T/CUMM (4-12)
[2021-03-23 05:49] LABS: Platelet Count 83 T/CUMM (130-400)
[2021-03-23 06:00] LABS: Albumin 3.1 G/DL (3.4-5.0); Bilirubin,Direct 0.13 MG/DL (0.0-0.20); Bilirubin,Indirect 0.7 MG/DL (0.0-1.0); Bilirubin,Total 0.8 MG/DL (0.2-1.0); Calcium 7.3 MG/DL (8.5-10.1); Osmolality,Calculated 285.3 MOS/KG (273-304); Potassium 4.3 MMOL/L (3.5-5.1); Total Protein 5.8 G/DL (6.4-8.2)
[2021-03-23] MEDS ORDERED: FUROSEMIDE 40 MG/4 ML VIAL IV ONE ×3 (06:00→16:00)
[2021-03-23 06:01] LABS: High Sensitive Troponin I* 3423.2 ng/L (0-78)
[2021-03-23 06:21] LABS: Anisocytosis 1+; Band Neutrophils 9 % (0-10); Lymphocytes 12 % (20-55); Platelet Estimate Decreased; Segmented Neutrophils 75 % (50-85); Total Cells Counted 100
[2021-03-23 06:22] LABS: Macrocytosis Slight
[2021-03-23] MEDS: INSULIN REGULAR 100 UNIT/ML SUBCUT SCH ×4 (07:31→20:22)
[2021-03-23] MEDS: ONDANSETRON 4 MG/2 ML VIAL IV PRN (09:40)
[2021-03-23] MEDS: methylPREDNISolone SOD SUC 125 MG/2 ML VIAL IV SCH ×3 (09:45→20:33)
[2021-03-23] MEDS: ASPIRIN EC 81 MG TABLET PO SCH ×2 (09:46→10:15)
[2021-03-23] MEDS: FERROUS SULFATE 325 MG TABLET PO SCH (09:46)
[2021-03-23] MEDS: PANTOPRAZOLE 40 MG TABLET PO SCH (09:46)
[2021-03-23] MEDS: ASCORBIC ACID 500 MG TABLET PO SCH ×2 (09:46→20:32)
[2021-03-23] MEDS: DOCUSATE SODIUM 100 MG CAPSULE PO SCH (09:46)
[2021-03-23] MEDS: CHLORHEXIDINE 0.12% ORAL RINSE 60 ML BOTTLE SWISH/SPIT SCH ×2 (10:15→21:28)
[2021-03-23 13:09] LABS: ABG Base Excess 0.3 MMOL/L (-2.5-2.5); ABG HCO3 24.5 MMOL/L (20-26); ABG Oxygen Saturation 86.9 % (95-100); ABG PCO2 44.6 MM HG (35-48); ABG PO2 58.5 MM HG (80-95); ABG TCO2 23.6 MMOL/L (23-27); Allen Test Positive; Pt O2 Delivery Device BIPAP
[2021-03-23] MEDS: ALBUTEROL 2.5 MG/3 ML NEB RESP TX SCH (16:16)
[2021-03-23] MEDS: NICOTINE 21 MG/24 HR PATCH TRANSDERM SCH (19:04)
[2021-03-23] MEDS: ROSUVASTATIN 20 MG TABLET PO SCH (20:32)
[2021-03-23] MEDS: CLORAZEPATE 3.75 MG TABLET PO PRN (20:39)
[2021-03-24] MEDS ORDERED: FUROSEMIDE 20 MG/2 ML VIAL IV ONE ×2 (00:01)
[2021-03-24] MEDS: ALBUTEROL 2.5 MG/3 ML NEB RESP TX SCH ×4 (00:41→23:39)
[2021-03-24] MEDS: KETOROLAC 30 MG/1 ML VIAL IV SCH ×4 (02:50→20:46)
[2021-03-24] MEDS: methylPREDNISolone SOD SUC 125 MG/2 ML VIAL IV SCH (02:52)
[2021-03-24 04:36] LABS: Basophils % 0.1 % (0.0-0.8); Hematocrit 29.2 VOL% (42.0-52.0); Hemoglobin 9.2 GM/DL (14.0-18.0); Immature Granulocytes % 1.9 %; Immature Granulocytes Absolute 0.31 #; Lymphocytes # 1.2 10*3/uL (1.4-4.0); Lymphocytes % 7.7 % (21.2-54.2); Mean Corpuscular HGB Conc 31.5 GM/DL (32-36); Mean Corpuscular Volume 93.6 FL (87-102); Mean Platelet Volume 11.1 FL (9.6-12.0); Neutrophils % 86.3 % (38.7-73.9); Platelet Count 85 T/CUMM (130-400); Red Blood Count 3.12 MC/CUMM (3.8-5.5); Red Cell Distribution Width 16.8 % (9.3-17.3)
[2021-03-24 04:53] LABS: Alanine Aminotransferase 25 U/L (16-61); Albumin 2.8 G/DL (3.4-5.0); Alkaline Phosphatase 41 U/L (45-117); Aspartate Amino Transferase 24 U/L (0-37); Bilirubin,Indirect 0.2 MG/DL (0.0-1.0); Blood Urea Nitrogen 30 MG/DL (7-18); Calcium 7.7 MG/DL (8.5-10.1); Carbon Dioxide 30 MMOL/L (21-32); Estimated Glom Filtration Rate 105 ML/MIN; Glucose 153 MG/DL (74-106); Osmolality,Calculated 291.1 MOS/KG (273-304); Sodium 142 MMOL/L (136-145); Total Protein 5.9 G/DL (6.4-8.2)
[2021-03-24 05:24] LABS: Hypochromasia Slight; Microcytosis 1+; Ovalocytes Slight; Platelet Estimate Decreased
[2021-03-24] MEDS: INSULIN REGULAR 100 UNIT/ML SUBCUT SCH ×4 (08:10→20:51)
[2021-03-24] MEDS: NICOTINE 21 MG/24 HR PATCH TRANSDERM SCH (08:25)
[2021-03-24] MEDS: methylPREDNISolone SOD SUC 40 MG/1 ML VIAL IV SCH ×2 (08:25→17:30)
[2021-03-24] MEDS: DOCUSATE SODIUM 100 MG CAPSULE PO SCH (08:25)
[2021-03-24] MEDS: ASPIRIN EC 81 MG TABLET PO SCH ×2 (08:25→08:26)
[2021-03-24] MEDS: ASCORBIC ACID 500 MG TABLET PO SCH ×2 (08:25→20:39)
[2021-03-24] MEDS: CHLORHEXIDINE 0.12% ORAL RINSE 60 ML BOTTLE SWISH/SPIT SCH ×2 (08:26→20:52)
[2021-03-24] MEDS: PANTOPRAZOLE 40 MG TABLET PO SCH (08:26)
[2021-03-24] MEDS: FERROUS SULFATE 325 MG TABLET PO SCH (08:26)
[2021-03-24] MEDS ORDERED: FUROSEMIDE 40 MG/4 ML VIAL IV ONE (13:00)
[2021-03-24] MEDS: ONDANSETRON 4 MG/2 ML VIAL IV PRN (18:44)
[2021-03-24] MEDS: ROSUVASTATIN 20 MG TABLET PO SCH (20:38)
[2021-03-24] MEDS: oxyCODONE/ACETAMINOPHEN 5-325 MG TABLET PO PRN (20:39)
[2021-03-24] MEDS: ZALEPLON 5 MG CAPSULE PO PRN (20:39)
[2021-03-25] MEDS: methylPREDNISolone SOD SUC 40 MG/1 ML VIAL IV SCH ×3 (00:50→16:22)
[2021-03-25] MEDS: KETOROLAC 30 MG/1 ML VIAL IV SCH ×4 (02:46→21:47)
[2021-03-25 04:39] LABS: Basophils % 0.1 % (0.0-0.8); Hematocrit 28.4 VOL% (42.0-52.0); Hemoglobin 9.1 GM/DL (14.0-18.0); Immature Granulocytes % 1.3 %; Immature Granulocytes Absolute 0.22 #; Lymphocytes # 1.3 10*3/uL (1.4-4.0); Lymphocytes % 7.8 % (21.2-54.2); Mean Corpuscular Volume 93.7 FL (87-102); Mean Platelet Volume 10.9 FL (9.6-12.0); Monocytes % 5.4 % (1.7-12.7); Neutrophils % 85.4 % (38.7-73.9); Platelet Count 99 T/CUMM (130-400); Red Blood Count 3.03 MC/CUMM (3.8-5.5); Red Cell Distribution Width 16.6 % (9.3-17.3); White Blood Count 17.1 T/CUMM (4-12)
[2021-03-25 04:56] LABS: Calcium 7.8 MG/DL (8.5-10.1); Osmolality,Calculated 293.3 MOS/KG (273-304); Potassium 4.1 MMOL/L (3.5-5.1)
[2021-03-25 04:59] LABS: Platelet Estimate Decreased
[2021-03-25 05:03] LABS: Anisocytosis 1+
[2021-03-25 05:04] LABS: Macrocytosis Slight
[2021-03-25] MEDS: ALBUTEROL 2.5 MG/3 ML NEB RESP TX SCH ×3 (07:10→23:45)
[2021-03-25] MEDS: ONDANSETRON 4 MG/2 ML VIAL IV PRN ×2 (08:07→19:19)
[2021-03-25] MEDS: NICOTINE 21 MG/24 HR PATCH TRANSDERM SCH (08:41)
[2021-03-25] MEDS: PANTOPRAZOLE 40 MG TABLET PO SCH (08:42)
[2021-03-25] MEDS: ASCORBIC ACID 500 MG TABLET PO SCH ×2 (08:42→21:37)
[2021-03-25] MEDS: DOCUSATE SODIUM 100 MG CAPSULE PO SCH (08:42)
[2021-03-25] MEDS: ASPIRIN EC 81 MG TABLET PO SCH ×2 (08:42→08:45)
[2021-03-25] MEDS: FERROUS SULFATE 325 MG TABLET PO SCH (08:42)
[2021-03-25] MEDS: INSULIN REGULAR 100 UNIT/ML SUBCUT SCH ×4 (08:42→21:57)
[2021-03-25] MEDS: CHLORHEXIDINE 0.12% ORAL RINSE 60 ML BOTTLE SWISH/SPIT SCH ×2 (09:00→21:40)
[2021-03-25] MEDS: oxyCODONE/ACETAMINOPHEN 5-325 MG TABLET PO PRN (18:18)
[2021-03-25] MEDS: ROSUVASTATIN 20 MG TABLET PO SCH (21:37)
[2021-03-25] MEDS: ZALEPLON 5 MG CAPSULE PO PRN (21:37)
[2021-03-26] MEDS: methylPREDNISolone SOD SUC 40 MG/1 ML VIAL IV SCH ×3 (00:26→16:32)
[2021-03-26] MEDS: KETOROLAC 30 MG/1 ML VIAL IV SCH ×4 (04:25→20:30)
[2021-03-26] MEDS ORDERED: FUROSEMIDE 40 MG/4 ML VIAL IV ONE (06:03)
[2021-03-26 06:34] LABS: Basophils % 0.1 % (0.0-0.8); Hematocrit 29.6 VOL% (42.0-52.0); Hemoglobin 9.3 GM/DL (14.0-18.0); Immature Granulocytes % 2.3 %; Immature Granulocytes Absolute 0.39 #; Lymphocytes # 1.4 10*3/uL (1.4-4.0); Lymphocytes % 7.9 % (21.2-54.2); Mean Corpuscular HGB Conc 31.4 GM/DL (32-36); Mean Corpuscular Volume 96.7 FL (87-102); Mean Platelet Volume 10.6 FL (9.6-12.0); Monocytes % 5.5 % (1.7-12.7); Neutrophils % 84.2 % (38.7-73.9); Platelet Count 110 T/CUMM (130-400); Red Blood Count 3.06 MC/CUMM (3.8-5.5); Red Cell Distribution Width 16.4 % (9.3-17.3); White Blood Count 17.1 T/CUMM (4-12)
[2021-03-26 07:18] LABS: Alanine Aminotransferase 26 U/L (16-61); Albumin 2.7 G/DL (3.4-5.0); Alkaline Phosphatase 48 U/L (45-117); Aspartate Amino Transferase 13 U/L (0-37); Bilirubin,Indirect 0.3 MG/DL (0.0-1.0); Bilirubin,Total < 0.39 MG/DL (0.2-1.0); Blood Urea Nitrogen 32 MG/DL (7-18); Calcium 7.5 MG/DL (8.5-10.1); Carbon Dioxide 29 MMOL/L (21-32); Estimated Glom Filtration Rate 113 ML/MIN; Glucose 139 MG/DL (74-106); Potassium 4.5 MMOL/L (3.5-5.1); Sodium 143 MMOL/L (136-145); Total Protein 5.6 G/DL (6.4-8.2)
[2021-03-26] MEDS: ALBUTEROL 2.5 MG/3 ML NEB RESP TX SCH ×3 (07:23→23:33)
[2021-03-26] MEDS ORDERED: LACTULOSE 20 GM/30 ML UDCUP PO PRN (07:54)
[2021-03-26] MEDS: ASPIRIN EC 81 MG TABLET PO SCH (08:34)
[2021-03-26] MEDS: DOCUSATE SODIUM 100 MG CAPSULE PO SCH (08:39)
[2021-03-26] MEDS: ASCORBIC ACID 500 MG TABLET PO SCH ×2 (08:39→20:30)
[2021-03-26] MEDS: POLYETHYLENE GLYCOL POWDER 17 GM PACK PO SCH (08:39)
[2021-03-26] MEDS: FERROUS SULFATE 325 MG TABLET PO SCH (08:39)
[2021-03-26] MEDS: CHLORHEXIDINE 0.12% ORAL RINSE 60 ML BOTTLE SWISH/SPIT SCH ×2 (08:39→22:12)
[2021-03-26] MEDS: NICOTINE 21 MG/24 HR PATCH TRANSDERM SCH (08:39)
[2021-03-26] MEDS: PANTOPRAZOLE 40 MG TABLET PO SCH (08:39)
[2021-03-26] MEDS: LEVOFLOXACIN INJ 500 MG/100 ML PREMIX IV SCH (09:03)
[2021-03-26] MEDS: INSULIN REGULAR 100 UNIT/ML SUBCUT SCH ×4 (09:03→20:30)
[2021-03-26] MEDS ORDERED: ALBUTEROL 1.25 MG/3 ML NEB RESP TX ONE (15:44)
[2021-03-26] MEDS ORDERED: BISACODYL 10 MG SUPP RECTAL ONE (18:07)
[2021-03-26] MEDS: ROSUVASTATIN 20 MG TABLET PO SCH (20:30)
[2021-03-26] MEDS: CLORAZEPATE 3.75 MG TABLET PO PRN (20:45)
[2021-03-27] MEDS: methylPREDNISolone SOD SUC 40 MG/1 ML VIAL IV SCH ×4 (00:24→20:29)
[2021-03-27] MEDS: ZALEPLON 5 MG CAPSULE PO PRN ×2 (00:25→20:29)
[2021-03-27] MEDS: KETOROLAC 30 MG/1 ML VIAL IV SCH ×2 (03:30→09:55)
[2021-03-27 04:18] LABS: Basophils % 0.2 % (0.0-0.8); Hematocrit 31.3 VOL% (42.0-52.0); Hemoglobin 9.9 GM/DL (14.0-18.0); Immature Granulocytes % 2.6 %; Lymphocytes # 1.5 10*3/uL (1.4-4.0); Lymphocytes % 7.7 % (21.2-54.2); Mean Corpuscular HGB Conc 31.6 GM/DL (32-36); Mean Corpuscular Volume 95.4 FL (87-102); Mean Platelet Volume 10.2 FL (9.6-12.0); Monocytes % 6.7 % (1.7-12.7); Neutrophils % 82.8 % (38.7-73.9); Red Blood Count 3.28 MC/CUMM (3.8-5.5); Red Cell Distribution Width 16.7 % (9.3-17.3); White Blood Count 19.1 T/CUMM (4-12)
[2021-03-27 04:19] LABS: Platelet Count 122 T/CUMM (130-400)
[2021-03-27 04:38] LABS: Alanine Aminotransferase 32 U/L (16-61); Albumin 2.6 G/DL (3.4-5.0); Alkaline Phosphatase 54 U/L (45-117); Aspartate Amino Transferase 18 U/L (0-37); Bilirubin,Indirect 0.3 MG/DL (0.0-1.0); Blood Urea Nitrogen 35 MG/DL (7-18); Calcium 7.9 MG/DL (8.5-10.1); Carbon Dioxide 31 MMOL/L (21-32); Estimated Glom Filtration Rate 119 ML/MIN; Glucose 132 MG/DL (74-106); Osmolality,Calculated 290.3 MOS/KG (273-304); Potassium 4.4 MMOL/L (3.5-5.1); Sodium 141 MMOL/L (136-145); Total Protein 5.6 G/DL (6.4-8.2)
[2021-03-27] MEDS ORDERED: SODIUM PHOSPHATE ENEMA 133 ML BOTTLE RECTAL ONE (06:07)
[2021-03-27] MEDS: ALBUTEROL 2.5 MG/3 ML NEB RESP TX SCH ×2 (07:43→16:16)
[2021-03-27] MEDS: INSULIN REGULAR 100 UNIT/ML SUBCUT SCH ×4 (08:18→21:23)
[2021-03-27] MEDS: PANTOPRAZOLE 40 MG TABLET PO SCH (09:53)
[2021-03-27] MEDS: ASCORBIC ACID 500 MG TABLET PO SCH ×2 (09:53→20:29)
[2021-03-27] MEDS: ASPIRIN EC 81 MG TABLET PO SCH (09:53)
[2021-03-27] MEDS: FERROUS SULFATE 325 MG TABLET PO SCH (09:53)
[2021-03-27] MEDS: NICOTINE 21 MG/24 HR PATCH TRANSDERM SCH (09:54)
[2021-03-27] MEDS: CHLORHEXIDINE 0.12% ORAL RINSE 60 ML BOTTLE SWISH/SPIT SCH ×2 (09:59→20:29)
[2021-03-27] MEDS: LEVOFLOXACIN INJ 500 MG/100 ML PREMIX IV SCH (10:05)
[2021-03-27] MEDS: POLYETHYLENE GLYCOL POWDER 17 GM PACK PO SCH (12:36)
[2021-03-27] MEDS: DOCUSATE SODIUM 100 MG CAPSULE PO SCH (12:51)
[2021-03-27] MEDS: SERTRALINE 50 MG TABLET PO SCH (20:29)
[2021-03-27] MEDS: ONDANSETRON 4 MG/2 ML VIAL IV PRN (20:29)
[2021-03-27] MEDS: CLORAZEPATE 3.75 MG TABLET PO PRN (20:29)
[2021-03-27] MEDS: ROSUVASTATIN 20 MG TABLET PO SCH (20:29)
[2021-03-28] MEDS: ALBUTEROL 2.5 MG/3 ML NEB RESP TX SCH ×4 (00:25→23:00)
[2021-03-28 05:41] LABS: Basophils % 0.1 % (0.0-0.8); Hematocrit 30.7 VOL% (42.0-52.0); Hemoglobin 9.9 GM/DL (14.0-18.0); Immature Granulocytes % 1.9 %; Immature Granulocytes Absolute 0.35 #; Lymphocytes # 1.4 10*3/uL (1.4-4.0); Lymphocytes % 7.6 % (21.2-54.2); Mean Corpuscular HGB Conc 32.2 GM/DL (32-36); Mean Corpuscular Volume 94.5 FL (87-102); Mean Platelet Volume 10.8 FL (9.6-12.0); Monocytes % 6.2 % (1.7-12.7); Neutrophils % 84.2 % (38.7-73.9); Platelet Count 118 T/CUMM (130-400); Red Blood Count 3.25 MC/CUMM (3.8-5.5); White Blood Count 18.5 T/CUMM (4-12)
[2021-03-28 05:47] LABS: Osmolality,Calculated 283.4 MOS/KG (273-304); Potassium 4.7 MMOL/L (3.5-5.1)
[2021-03-28] MEDS: POLYETHYLENE GLYCOL POWDER 17 GM PACK PO SCH (10:23)
[2021-03-28] MEDS: LEVOFLOXACIN INJ 500 MG/100 ML PREMIX IV SCH (10:23)
[2021-03-28] MEDS: NICOTINE 21 MG/24 HR PATCH TRANSDERM SCH (10:24)
[2021-03-28] MEDS: ONDANSETRON 4 MG/2 ML VIAL IV PRN ×2 (10:25→20:20)
[2021-03-28] MEDS: methylPREDNISolone SOD SUC 40 MG/1 ML VIAL IV SCH ×2 (10:25→20:16)
[2021-03-28] MEDS: PANTOPRAZOLE 40 MG TABLET PO SCH (10:26)
[2021-03-28] MEDS: FERROUS SULFATE 325 MG TABLET PO SCH (10:26)
[2021-03-28] MEDS: ASCORBIC ACID 500 MG TABLET PO SCH ×2 (10:26→20:05)
[2021-03-28] MEDS: ASPIRIN EC 81 MG TABLET PO SCH (10:26)
[2021-03-28] MEDS: DOCUSATE SODIUM 100 MG CAPSULE PO SCH (10:27)
[2021-03-28] MEDS: INSULIN REGULAR 100 UNIT/ML SUBCUT SCH ×4 (10:27→20:05)
[2021-03-28] MEDS: CHLORHEXIDINE 0.12% ORAL RINSE 60 ML BOTTLE SWISH/SPIT SCH (10:28)
[2021-03-28] MEDS ORDERED: DEXTROSE 50% 25 GM/50 ML VIAL IV PRN (19:00)
[2021-03-28] MEDS ORDERED: MAGNESIUM HYDROXIDE SUSP 30 ML UDCUP PO PRN (19:00)
[2021-03-28] MEDS ORDERED: MAGNESIUM SULF RIDER 4 GM/100 ML PREMIX IV PRN (19:00)
[2021-03-28] MEDS ORDERED: POTASSIUM CHLORIDE 20 MEQ TABLET PO PRN (19:00)
[2021-03-28] MEDS ORDERED: MAGNESIUM SULF RIDER 2 GM/50 ML PREMIX IV PRN (19:00)
[2021-03-28] MEDS ORDERED: GLUCAGON 1 MG VIAL IM PRN (19:00)
[2021-03-28] MEDS ORDERED: ALUMINUM/MAGNES/SIMETH MAX STR 30 ML UDCUP PO PRN (19:00)
[2021-03-28] MEDS: ROSUVASTATIN 20 MG TABLET PO SCH (20:04)
[2021-03-28] MEDS: CLORAZEPATE 3.75 MG TABLET PO PRN (20:04)
[2021-03-28] MEDS: ZALEPLON 5 MG CAPSULE PO PRN (20:04)
[2021-03-28] MEDS: ACETAMINOPHEN 325 MG TABLET PO PRN (20:05)
[2021-03-28] MEDS: SERTRALINE 50 MG TABLET PO SCH (20:05)
[2021-03-29] MEDS: ONDANSETRON 4 MG/2 ML VIAL IV PRN ×3 (01:44→12:52)
[2021-03-29 04:09] LABS: Basophils % 0.1 % (0.0-0.8); Hematocrit 31.6 VOL% (42.0-52.0); Hemoglobin 10.1 GM/DL (14.0-18.0); Immature Granulocytes % 2.3 %; Immature Granulocytes Absolute 0.38 #; Lymphocytes # 1.2 10*3/uL (1.4-4.0); Lymphocytes % 7.4 % (21.2-54.2); Mean Corpuscular Volume 94.3 FL (87-102); Mean Platelet Volume 10.4 FL (9.6-12.0); Neutrophils % 85.2 % (38.7-73.9); Platelet Count 119 T/CUMM (130-400); Red Blood Count 3.35 MC/CUMM (3.8-5.5); Red Cell Distribution Width 17.1 % (9.3-17.3); White Blood Count 16.3 T/CUMM (4-12)
[2021-03-29 04:33] LABS: Alanine Aminotransferase 34 U/L (16-61); Albumin 2.7 G/DL (3.4-5.0); Alkaline Phosphatase 53 U/L (45-117); Aspartate Amino Transferase 16 U/L (0-37); Bilirubin,Indirect 0.3 MG/DL (0.0-1.0); Blood Urea Nitrogen 23 MG/DL (7-18); Calcium 8.1 MG/DL (8.5-10.1); Carbon Dioxide 28 MMOL/L (21-32); Estimated Glom Filtration Rate 119 ML/MIN; Glucose 144 MG/DL (74-106); Osmolality,Calculated 283.5 MOS/KG (273-304); Potassium 4.9 MMOL/L (3.5-5.1); Sodium 139 MMOL/L (136-145); Total Protein 5.6 G/DL (6.4-8.2)
[2021-03-29] MEDS: INSULIN REGULAR 100 UNIT/ML SUBCUT SCH ×4 (07:19→20:07)
[2021-03-29] MEDS: ALBUTEROL 2.5 MG/3 ML NEB RESP TX SCH ×2 (08:20→15:10)
[2021-03-29] MEDS: LEVOFLOXACIN INJ 500 MG/100 ML PREMIX IV SCH (08:58)
[2021-03-29] MEDS: NEBIVOLOL 5 MG TABLET PO SCH (08:59)
[2021-03-29] MEDS: ASPIRIN EC 81 MG TABLET PO SCH (08:59)
[2021-03-29] MEDS: POLYETHYLENE GLYCOL POWDER 17 GM PACK PO SCH (08:59)
[2021-03-29] MEDS: PANTOPRAZOLE 40 MG TABLET PO SCH (08:59)
[2021-03-29] MEDS: ASCORBIC ACID 500 MG TABLET PO SCH ×2 (08:59→20:07)
[2021-03-29] MEDS: DOCUSATE SODIUM 100 MG CAPSULE PO SCH (08:59)
[2021-03-29] MEDS: methylPREDNISolone SOD SUC 40 MG/1 ML VIAL IV SCH ×2 (09:00→20:07)
[2021-03-29] MEDS: NICOTINE 21 MG/24 HR PATCH TRANSDERM SCH (09:04)
[2021-03-29 09:06] LABS: Bacteria,Urine Occasional /HPF (Few); Bilirubin,Urine Negative (Negative); Blood, Urine Negative (Negative); Glucose,Urine (UA) Negative (Negative); Ketones,Urine Negative (Negative); Mucus,Urine Occasional /LPF (Occasional); Nitrite,Urine Negative (Negative); Protein,Urine Negative; RBC,Urine 1 /HPF (0-4); Urine Appearance CLEAR (Clear); Urine Color Yellow (Yellow); Urine Specific Gravity 1.015 (1.001-1.035); Urine Urobilinogen < 2.0 EU/DL (0.2-1.0)
[2021-03-29] MEDS: ROSUVASTATIN 20 MG TABLET PO SCH (20:07)
[2021-03-29] MEDS: SERTRALINE 50 MG TABLET PO SCH (20:07)
[2021-03-30] MEDS: ALBUTEROL 2.5 MG/3 ML NEB RESP TX SCH ×4 (00:18→22:50)
[2021-03-30 04:12] LABS: Basophils % 0.2 % (0.0-0.8); Hematocrit 32.9 VOL% (42.0-52.0); Hemoglobin 10.9 GM/DL (14.0-18.0); Immature Granulocytes % 2.1 %; Immature Granulocytes Absolute 0.32 #; Lymphocytes # 1.3 10*3/uL (1.4-4.0); Lymphocytes % 8.1 % (21.2-54.2); Mean Corpuscular HGB Conc 33.1 GM/DL (32-36); Mean Corpuscular Volume 93.2 FL (87-102); Mean Platelet Volume 10.6 FL (9.6-12.0); Monocytes % 6.2 % (1.7-12.7); Neutrophils % 83.4 % (38.7-73.9); Platelet Count 116 T/CUMM (130-400); Red Blood Count 3.53 MC/CUMM (3.8-5.5); Red Cell Distribution Width 16.9 % (9.3-17.3); White Blood Count 15.6 T/CUMM (4-12)
[2021-03-30 04:29] LABS: Alanine Aminotransferase 43 U/L (16-61); Albumin 2.6 G/DL (3.4-5.0); Alkaline Phosphatase 59 U/L (45-117); Aspartate Amino Transferase 19 U/L (0-37); Bilirubin,Indirect 0.2 MG/DL (0.0-1.0); Blood Urea Nitrogen 21 MG/DL (7-18); Calcium 8.3 MG/DL (8.5-10.1); Carbon Dioxide 28 MMOL/L (21-32); Estimated Glom Filtration Rate 111 ML/MIN; Glucose 148 MG/DL (74-106); Osmolality,Calculated 282.5 MOS/KG (273-304); Potassium 4.8 MMOL/L (3.5-5.1); Sodium 139 MMOL/L (136-145); Total Protein 5.6 G/DL (6.4-8.2)
[2021-03-30 04:37] LABS: Calcium 8.3 MG/DL (8.5-10.1); Osmolality,Calculated 282.5 MOS/KG (273-304); Potassium 4.8 MMOL/L (3.5-5.1)
[2021-03-30] MEDS: INSULIN REGULAR 100 UNIT/ML SUBCUT SCH ×4 (07:30→20:15)
[2021-03-30] MEDS: PANTOPRAZOLE 40 MG TABLET PO SCH (08:07)
[2021-03-30] MEDS: ACETAMINOPHEN 325 MG TABLET PO PRN ×2 (08:07→20:15)
[2021-03-30] MEDS: ASCORBIC ACID 500 MG TABLET PO SCH ×2 (08:07→20:15)
[2021-03-30] MEDS: NEBIVOLOL 5 MG TABLET PO SCH (08:07)
[2021-03-30] MEDS: ASPIRIN EC 81 MG TABLET PO SCH (08:07)
[2021-03-30] MEDS: methylPREDNISolone SOD SUC 40 MG/1 ML VIAL IV SCH ×2 (08:08→09:00)
[2021-03-30] MEDS: DOCUSATE SODIUM 100 MG CAPSULE PO SCH (08:08)
[2021-03-30] MEDS: NICOTINE 21 MG/24 HR PATCH TRANSDERM SCH (08:08)
[2021-03-30] MEDS: LEVOFLOXACIN INJ 500 MG/100 ML PREMIX IV SCH (08:09)
[2021-03-30] MEDS: POLYETHYLENE GLYCOL POWDER 17 GM PACK PO SCH (08:10)
[2021-03-30] MEDS: FUROSEMIDE 40 MG TABLET PO SCH (09:06)
[2021-03-30] MEDS: oxyCODONE/ACETAMINOPHEN 5-325 MG TABLET PO PRN (10:40)
[2021-03-30] MEDS: ROSUVASTATIN 20 MG TABLET PO SCH (20:15)
[2021-03-30] MEDS: CLORAZEPATE 3.75 MG TABLET PO PRN (20:15)
[2021-03-30] MEDS: SERTRALINE 50 MG TABLET PO SCH (20:15)
[2021-03-31 03:50] LABS: Basophils % 0.1 % (0.0-0.8); Eosinophils # 0.1 10*3/uL (0.0-0.87); Eosinophils % 0.4 % (0.00-10.9); Hematocrit 34.6 VOL% (42.0-52.0); Hemoglobin 11.4 GM/DL (14.0-18.0); Immature Granulocytes % 1.2 %; Immature Granulocytes Absolute 0.23 #; Lymphocytes # 3.8 10*3/uL (1.4-4.0); Lymphocytes % 20.2 % (21.2-54.2); Mean Corpuscular HGB Conc 32.9 GM/DL (32-36); Mean Corpuscular Volume 92.5 FL (87-102); Mean Platelet Volume 10.7 FL (9.6-12.0); Monocytes % 8.4 % (1.7-12.7); Neutrophils % 69.7 % (38.7-73.9); Platelet Count 107 T/CUMM (130-400); Red Blood Count 3.74 MC/CUMM (3.8-5.5); Red Cell Distribution Width 16.9 % (9.3-17.3); White Blood Count 18.9 T/CUMM (4-12)
[2021-03-31 04:08] LABS: Calcium 8.4 MG/DL (8.5-10.1); Osmolality,Calculated 275.8 MOS/KG (273-304)
[2021-03-31] MEDS: ACETAMINOPHEN 325 MG TABLET PO PRN (04:31)
[2021-03-31] MEDS: ONDANSETRON 4 MG/2 ML VIAL IV PRN ×2 (07:04→20:22)
[2021-03-31] MEDS: ALBUTEROL 2.5 MG/3 ML NEB RESP TX SCH ×3 (07:48→23:17)
[2021-03-31] MEDS: INSULIN REGULAR 100 UNIT/ML SUBCUT SCH ×4 (08:08→20:13)
[2021-03-31] MEDS: LEVOFLOXACIN INJ 500 MG/100 ML PREMIX IV SCH (09:55)
[2021-03-31] MEDS ORDERED: PROMETHAZINE INJ 12.5 MG in SODIUM CHLORIDE 0.9% 50 ML IV PRN (10:01)
[2021-03-31] MEDS: NICOTINE 21 MG/24 HR PATCH TRANSDERM SCH (10:09)
[2021-03-31] MEDS: methylPREDNISolone SOD SUC 40 MG/1 ML VIAL IV SCH (10:10)
[2021-03-31] MEDS: DOCUSATE SODIUM 100 MG CAPSULE PO SCH (12:45)
[2021-03-31] MEDS: NEBIVOLOL 5 MG TABLET PO SCH ×2 (12:45→12:56)
[2021-03-31] MEDS: ASCORBIC ACID 500 MG TABLET PO SCH ×2 (12:45→20:17)
[2021-03-31] MEDS: ASPIRIN EC 81 MG TABLET PO SCH (12:45)
[2021-03-31] MEDS: FUROSEMIDE 40 MG TABLET PO SCH (12:45)
[2021-03-31] MEDS: POLYETHYLENE GLYCOL POWDER 17 GM PACK PO SCH (12:46)
[2021-03-31] MEDS: PANTOPRAZOLE 40 MG TABLET PO SCH (12:46)
[2021-03-31] MEDS ORDERED: IBUPROFEN 200 MG TABLET PO PRN (14:05)
[2021-03-31] MEDS: SERTRALINE 50 MG TABLET PO SCH (20:17)
[2021-03-31] MEDS: ROSUVASTATIN 20 MG TABLET PO SCH (20:17)
[2021-03-31] MEDS: ZALEPLON 5 MG CAPSULE PO PRN (20:26)
[2021-04-01 05:10] LABS: Basophils % 0.1 % (0.0-0.8); Eosinophils # 0.1 10*3/uL (0.0-0.87); Eosinophils % 0.2 % (0.00-10.9); Hematocrit 37.2 VOL% (42.0-52.0); Hemoglobin 12.3 GM/DL (14.0-18.0); Immature Granulocytes Absolute 0.22 #; Lymphocytes # 3.7 10*3/uL (1.4-4.0); Lymphocytes % 16.5 % (21.2-54.2); Mean Corpuscular HGB Conc 33.1 GM/DL (32-36); Mean Corpuscular Volume 92.3 FL (87-102); Mean Platelet Volume 11.1 FL (9.6-12.0); Monocytes % 6.9 % (1.7-12.7); Neutrophils % 75.3 % (38.7-73.9); Platelet Count 125 T/CUMM (130-400); Red Blood Count 4.03 MC/CUMM (3.8-5.5); Red Cell Distribution Width 17.2 % (9.3-17.3); White Blood Count 22.1 T/CUMM (4-12)
[2021-04-01 05:33] LABS: Alanine Aminotransferase 38 U/L (16-61); Albumin 2.7 G/DL (3.4-5.0); Alkaline Phosphatase 61 U/L (45-117); Aspartate Amino Transferase 11 U/L (0-37); Bilirubin,Indirect 0.5 MG/DL (0.0-1.0); Blood Urea Nitrogen 23 MG/DL (7-18); Carbon Dioxide 29 MMOL/L (21-32); Estimated Glom Filtration Rate 111 ML/MIN; Glucose 97 MG/DL (74-106); Osmolality,Calculated 278.7 MOS/KG (273-304); Potassium 3.9 MMOL/L (3.5-5.1); Sodium 138 MMOL/L (136-145); Total Protein 5.8 G/DL (6.4-8.2)
[2021-04-01 05:52] LABS: Hypochromasia Slight; Microcytosis 1+
[2021-04-01 05:53] LABS: Platelet Estimate Adequate; Polychromasia Slight
[2021-04-01] MEDS: ALBUTEROL 2.5 MG/3 ML NEB RESP TX SCH (07:31)
[2021-04-01] MEDS ORDERED: ALBUTEROL 2.5 MG/3 ML NEB RESP TX PRN (07:46)
[2021-04-01] MEDS: NEBIVOLOL 5 MG TABLET PO SCH (09:23)
[2021-04-01] MEDS: DOCUSATE SODIUM 100 MG CAPSULE PO SCH (09:23)
[2021-04-01] MEDS: PANTOPRAZOLE 40 MG TABLET PO SCH (09:23)
[2021-04-01] MEDS: ASCORBIC ACID 500 MG TABLET PO SCH ×2 (09:23→20:42)
[2021-04-01] MEDS: ASPIRIN EC 81 MG TABLET PO SCH (09:23)
[2021-04-01] MEDS: methylPREDNISolone SOD SUC 40 MG/1 ML VIAL IV SCH (09:24)
[2021-04-01] MEDS: FUROSEMIDE 40 MG TABLET PO SCH (09:24)
[2021-04-01] MEDS: NICOTINE 21 MG/24 HR PATCH TRANSDERM SCH (09:24)
[2021-04-01] MEDS: POLYETHYLENE GLYCOL POWDER 17 GM PACK PO SCH (09:25)
[2021-04-01] MEDS: INSULIN REGULAR 100 UNIT/ML SUBCUT SCH ×4 (09:28→21:12)
[2021-04-01] MEDS: SERTRALINE 50 MG TABLET PO SCH (20:42)
[2021-04-01] MEDS: ONDANSETRON 4 MG/2 ML VIAL IV PRN (20:42)
[2021-04-01] MEDS: ROSUVASTATIN 20 MG TABLET PO SCH (20:42)
[2021-04-01] MEDS: ZALEPLON 5 MG CAPSULE PO PRN (20:42)
[2021-04-02 04:30] LABS: Basophils % 0.1 % (0.0-0.8); Eosinophils % 0.2 % (0.00-10.9); Hemoglobin 11.9 GM/DL (14.0-18.0); Immature Granulocytes % 0.9 %; Immature Granulocytes Absolute 0.17 #; Lymphocytes # 3.2 10*3/uL (1.4-4.0); Lymphocytes % 16.9 % (21.2-54.2); Mean Corpuscular HGB Conc 33.1 GM/DL (32-36); Mean Corpuscular Volume 92.5 FL (87-102); Mean Platelet Volume 10.8 FL (9.6-12.0); Monocytes % 8.9 % (1.7-12.7); Platelet Count 114 T/CUMM (130-400); Red Blood Count 3.89 MC/CUMM (3.8-5.5); Red Cell Distribution Width 17.3 % (9.3-17.3); White Blood Count 18.7 T/CUMM (4-12)
[2021-04-02 04:52] LABS: Alanine Aminotransferase 32 U/L (16-61); Albumin 2.6 G/DL (3.4-5.0); Alkaline Phosphatase 65 U/L (45-117); Aspartate Amino Transferase 12 U/L (0-37); Bilirubin,Indirect 0.5 MG/DL (0.0-1.0); Blood Urea Nitrogen 22 MG/DL (7-18); Calcium 7.9 MG/DL (8.5-10.1); Carbon Dioxide 26 MMOL/L (21-32); Estimated Glom Filtration Rate 109 ML/MIN; Glucose 100 MG/DL (74-106); Osmolality,Calculated 275.8 MOS/KG (273-304); Potassium 3.8 MMOL/L (3.5-5.1); Sodium 137 MMOL/L (136-145); Total Protein 5.8 G/DL (6.4-8.2)
[2021-04-02] MEDS: ASCORBIC ACID 500 MG TABLET PO SCH ×2 (09:42→20:20)
[2021-04-02] MEDS: NICOTINE 21 MG/24 HR PATCH TRANSDERM SCH (09:42)
[2021-04-02] MEDS: INSULIN REGULAR 100 UNIT/ML SUBCUT SCH ×4 (09:43→20:19)
[2021-04-02] MEDS: predniSONE 20 MG TABLET PO SCH ×2 (09:43→20:19)
[2021-04-02] MEDS: ASPIRIN EC 81 MG TABLET PO SCH (09:43)
[2021-04-02] MEDS: DOCUSATE SODIUM 100 MG CAPSULE PO SCH (09:43)
[2021-04-02] MEDS: FUROSEMIDE 40 MG TABLET PO SCH (09:43)
[2021-04-02] MEDS: NEBIVOLOL 5 MG TABLET PO SCH (09:43)
[2021-04-02] MEDS: PANTOPRAZOLE 40 MG TABLET PO SCH (09:43)
[2021-04-02] MEDS: POLYETHYLENE GLYCOL POWDER 17 GM PACK PO SCH (09:44)
[2021-04-02] MEDS: ZALEPLON 5 MG CAPSULE PO PRN (20:19)
[2021-04-02] MEDS: ROSUVASTATIN 20 MG TABLET PO SCH (20:20)
[2021-04-02] MEDS: SERTRALINE 50 MG TABLET PO SCH (20:20)
[2021-04-02] MEDS: ONDANSETRON 4 MG/2 ML VIAL IV PRN (20:22)
[2021-04-03] MEDS: ONDANSETRON 4 MG/2 ML VIAL IV PRN (02:49)
[2021-04-03 05:42] LABS: Basophils % 0.1 % (0.0-0.8); Hematocrit 36.6 VOL% (42.0-52.0); Hemoglobin 12.1 GM/DL (14.0-18.0); Immature Granulocytes % 0.8 %; Immature Granulocytes Absolute 0.17 #; Lymphocytes # 1.3 10*3/uL (1.4-4.0); Lymphocytes % 6.5 % (21.2-54.2); Mean Corpuscular HGB Conc 33.1 GM/DL (32-36); Mean Corpuscular Volume 91.5 FL (87-102); Mean Platelet Volume 11.4 FL (9.6-12.0); Monocytes % 5.1 % (1.7-12.7); Neutrophils % 87.5 % (38.7-73.9); Platelet Count 118 T/CUMM (130-400); White Blood Count 20.4 T/CUMM (4-12)
[2021-04-03 05:54] LABS: Calcium 8.1 MG/DL (8.5-10.1); Osmolality,Calculated 272.4 MOS/KG (273-304); Potassium 3.8 MMOL/L (3.5-5.1)
[2021-04-03 06:05] LABS: Hypochromasia Slight; Microcytosis 1+; Ovalocytes Slight
[2021-04-03 06:06] LABS: Platelet Estimate Adequate
[2021-04-03 07:48] VITALS: BP 97/69
[2021-04-03] MEDS: predniSONE 20 MG TABLET PO SCH (09:01)
[2021-04-03] MEDS: ASCORBIC ACID 500 MG TABLET PO SCH (09:01)
[2021-04-03] MEDS: PANTOPRAZOLE 40 MG TABLET PO SCH (09:01)
[2021-04-03] MEDS: FUROSEMIDE 40 MG TABLET PO SCH (09:01)
[2021-04-03] MEDS: ASPIRIN EC 81 MG TABLET PO SCH (09:02)
[2021-04-03] MEDS: NEBIVOLOL 5 MG TABLET PO SCH (09:03)
[2021-04-03] MEDS: NICOTINE 21 MG/24 HR PATCH TRANSDERM SCH (09:04)
[2021-04-03] MEDS: INSULIN REGULAR 100 UNIT/ML SUBCUT SCH (09:04)
[2021-04-03] MEDS: POLYETHYLENE GLYCOL POWDER 17 GM PACK PO SCH (09:04)
[2021-04-03] MEDS: DOCUSATE SODIUM 100 MG CAPSULE PO SCH (09:04)
== END 2021-04-03 11:21 | disposition home or self-care (01) | DRG 216 ==
LOC: N.CL 06:06 → N.TELEN 10:13 → N.CVR 03-21 12:32 → N.TELES 03-22 12:49 → N.ICU 03-23 12:11 → N.TELES 04-01 00:25
PROVIDERS: ADMIT Internal Medicine Interventional Cardiology; ATTEND Internal Medicine Interventional Cardiology
PROC: CABGAVR (ICD-10-PCS; 2021-03-21 06:43)